=== PATIENT | female | born 1945 | race Caucasian/White ===

== ENCOUNTER 2018-11-21 21:27 | Emergency (ER) | payer MEDICARE ==
[2018-11-22] MEDS ORDERED: NS 0.9% 1000 ML** 1,000 ML IV ONE (00:09)
[2018-11-22] MEDS ORDERED: Ketorolac INJ* 30 MG/ML 1 ML VIAL IV PUSH ONE ×2 (00:09→02:59)
[2018-11-22] MEDS ORDERED: Ondansetron INJ* 2 MG/ML VIAL IV ONE (00:10)
[2018-11-22 00:33] LABS: ABS Basophils 0 10^3/ul (0-0.2); ABS Eosinophils 0.1 10^3/ul (0-0.6); ABS Lymphocytes 1.8 10^3/ul (1.0-4.8); ABS Monocytes 0.9 10^3/ul (0-0.8); ABS Neutrophils 8.5 10^3/ul (1.5-7.7); ABS Nucleated RBC 0 10^3/ul; Eosinophil % 0.8 %; Hematocrit 39 % (33-41); Hemoglobin 12.8 g/dL (12.0-16.0); Lymphocyte % 15.6 %; Mean Corpuscular HGB Conc 33 g/dL (31-36); Mean Corpuscular Hemoglobin 29 pg (27-31); Mean Corpuscular Volume 89 fL (80-97); Mean Platelet Volume 8.9 fL (7.4-10.4); Nucleated Red Blood Cells % 0; Platelet Count 246 10^3/uL (150-450); Red Blood Count 4.35 10^6 /uL (3.70-4.87); Red Cell Distribution Width 13 % (10.5-15); White Blood Count 11.3 10^3/uL (3.5-10.8)
[2018-11-22 00:44] LABS: Activated Partial Thrombo Time 31.1 seconds (26.0-36.3); INR 0.82 (0.77-1.02)
[2018-11-22 00:46] LABS: Albumin 4.4 g/dL (3.2-5.2); Albumin/Globulin Ratio 1.5 (1-3); BUN/Creatinine Ratio 30.8 (8-20); C Reactive Protein 30.29 mg/L (<8.01); Calcium 9.4 mg/dL (8.6-10.3); EGFR African American 108.7 (>60); EGFR Non-African American 89.9 (>60); Magnesium 1.3 mg/dL (1.9-2.7); Potassium 4.1 mmol/L (3.5-5.0); Total Bilirubin 0.5 mg/dL (0.2-1.0); Total Protein 7.4 g/dL (6.4-8.9)
--- NOTE | 2018-11-22 01:03 | ED ---
Complex/Multi-Sys Presentation - HPI Summary HPI Summary: A 73 y/o female presents to [facility] with a chief complaint of right sided groin pain. She reports that she first felt pain one night ago, felt fine the next day , and then her pain started up again tonight and has been worsening since she came in to the ED. She reports that some of her pain radiates to her back. At triage she rated her pain as an 8/10 in severity. She denies dysuria, hematuria or N/V. She denies any past abdominal surgeries. She reports a left breast removal. - History Of Current Complaint Chief Complaint: EDGeneral Time Seen by Provider: 11/22/18 00:03 Hx Obtained From: Patient Onset/Duration: Sudden Onset, Lasting Days, Still Present Timing: Intermittent, Lasting:, Hours Severity Currently: Severe Severity Initially: Severe Location: Pain At: - right groin pain Character: Unable To Describe Aggravating Factor(s): nothing Alleviating Factor(s): nothing Associated Signs And Symptoms: Positive: Back Pain. Negative: Nausea, Vomiting , Dysuria, Fever - Allergies/Home Medications Allergies/Adverse Reactions: Allergies Allergy/AdvReac Type Severity Reaction Status Date / Time No Known Allergies Allergy Verified 05/10/15 14:08 PMH/Surg Hx/FS Hx/Imm Hx Musculoskeletal History: Denies: Hx Osteoporosis Sensory History: Denies: Hx Deafness - Cancer History Hx Chemotherapy: Yes - BREAST Hx Radiation Therapy: No - Surgical History Surgery Procedure, Year, and Place: left breast removal Infectious Disease History: No Infectious Disease History: Denies: Traveled Outside the [place] in Last 30 Days - Family History Known Family History: Negative: Blood Disorder - Social History Alcohol Use: None Substance Use Type: Reports: None Smoking Status (MU): Never Smoked Tobacco Review of Systems Negative: Fever Negative: Vomiting, Nausea Negative: dysuria, hematuria Positive: Myalgia - back pain, Other - positive: right groin pain All Other Systems Reviewed And Are Negative: Yes Physical Exam - Summary Physical Exam Summary: VITAL SIGNS: Reviewed. GENERAL: Patient is a well-developed and nourished FEMALE who is lying comfortable in the stretcher. Patient is not in any acute respiratory distress. HEAD AND FACE: No signs of trauma. No ecchymosis, hematomas or skull depressions. No sinus tenderness. EYES: PERRLA, EOMI x 2, No injected conjunctiva, no nystagmus. EARS: Hearing grossly intact. Ear canals and tympanic membranes are within normal limits. MOUTH: Oropharynx within normal limits. NECK: Supple, trachea is midline, no adenopathy, no JVD, no carotid bruit, no c- spine tenderness, neck with full ROM. CHEST: Symmetric, no tenderness at palpation LUNGS: Clear to auscultation bilaterally. No wheezing or crackles. CVS: Regular rate and rhythm, S1 and S2 present, no murmurs or gallops appreciated. ABDOMEN: Right CVA tenderness, right pelvic tenderness.. No signs of distention. No rebound no guarding, and no masses palpated. Bowel sounds are normal. EXTREMITIES: Right CVA tenderness, right pelvic tenderness. FROM in all major joints, no edema, no cyanosis or clubbing. NEURO: Alert and oriented x 3. No acute neurological deficits. Speech is normal and follows commands. SKIN: Dry and warm Triage Information Reviewed: Yes Vital Signs On Initial Exam: Initial Vitals Temp Pulse Resp BP Pulse Ox 98.6 F 78 18 189/82 96 11/21/18 21:30 11/21/18 21:30 11/21/18 21:30 11/21/18 21:30 11/21/18 21:30 Vital Signs Reviewed: Yes Diagnostics - Vital Signs Vital Signs Temp Pulse Resp BP Pulse Ox 11/22/18 00:17 73 177/89 93 11/22/18 00:16 73 94 11/21/18 21:30 98.6 F 78 18 189/82 96 - Laboratory Lab Results: Lab Results 11/22/18 11/22/18 11/22/18 Range/Units 00:22 00:22 00:22 WBC 11.3 H (3.5-10.8) 10^3/uL RBC 4.35 (3.70-4.87) 10^6 /uL Hgb 12.8 (12.0-16.0) g/dL Hct 39 (33-41) % MCV 89 (80-97) fL MCH 29 (27-31) pg MCHC 33 (31-36) g/dL RDW 13 (10.5-15) % Plt Count 246 (150-450) 10^3/uL MPV 8.9 (7.4-10.4) fL Neut % (Auto) 75.7 % Lymph % (Auto) 15.6 % Pettis % (Auto) 7.7 % Eos % (Auto) 0.8 % Baso % (Auto) 0.2 % Absolute Neuts (auto) 8.5 H (1.5-7.7) 10^3/ul Absolute Lymphs (auto) 1.8 (1.0-4.8) 10^3/ul Absolute Monos (auto) 0.9 H (0-0.8) 10^3/ul Absolute Eos (auto) 0.1 (0-0.6) 10^3/ul Absolute Basos (auto) 0 (0-0.2) 10^3/ul Absolute Nucleated RBC 0 10^3/ul Nucleated RBC % 0 INR (Anticoag Therapy) 0.82 (0.77-1.02) APTT 31.1 (26.0-36.3) seconds Sodium 134 L (135-145) mmol/L Potassium 4.1 (3.5-5.0) mmol/L Chloride 101 (101-111) mmol/L Carbon Dioxide 22 (22-32) mmol/L Anion Gap 11 (2-11) mmol/L BUN 20 (6-24) mg/dL Creatinine 0.65 (0.51-0.95) mg/dL Est GFR ( Amer) 108.7 (>60) Est GFR (Non-Af Amer) 89.9 (>60) BUN/Creatinine Ratio 30.8 H (8-20) Glucose 257 H (70-100) mg/dL Calcium 9.4 (8.6-10.3) mg/dL Magnesium 1.3 L (1.9-2.7) mg/dL Total Bilirubin 0.50 (0.2-1.0) mg/dL AST 23 (13-39) U/L ALT 18 (7-52) U/L Alkaline Phosphatase 55 (34-104) U/L C-Reactive Protein 30.29 H (<8.01) mg/L Total Protein 7.4 (6.4-8.9) g/dL Albumin 4.4 (3.2-5.2) g/dL Globulin 3.0 (2-4) g/dL Albumin/Globulin Ratio 1.5 (1-3) Lipase 27 (11.0-82.0) U/L Result Diagrams: 11/22/18 00:22 11/22/18 00:22 Lab Statement: Any lab studies that have been ordered have been reviewed, and results considered in the medical decision making process. - CT abdomen/pelvis CT Interpretation Completed By: Radiologist Summary of CT Findings: 1. Moderately obstructing 6 mm calculus distal third right ureter. 2. Distal colonic diverticulosis. 3. Suspected old or atypical uterine IUD. 4. Bilateral inguinal hernias. No strangulation. ED physician has reviewed this imaging report. Complex Multi-Symp Course/Dx Course Of Treatment: A 73 y/o female presents to [facility] with a chief complaint of right sided groin pain. She reports that she first felt pain one night ago, felt fine the next day, and then her pain started up again tonight and has been worsening since she came in to the ED. She reports that some of her pain radiates to her back. At triage she rated her pain as an 8/10 in severity. She denies dysuria, hematuria or N/V. She denies any past abdominal surgeries. She reports a left breast removal. The physical exam revealed right CVA and right pelvic tednerness. In the ED course the patient was given Toradol IV and Zofran IV. CT abdomen/pelvis impression: 1. Moderately obstructing 6 mm calculus distal third right ureter. 2. Distal colonic diverticulosis. 3. Suspected old or atypical uterine IUD. 4. Bilateral inguinal hernias. No strangulation. Bloodwork, chemistries and urines obtained. Urine glucose 3+, urine bacteria 1+ , Ur Squamous Epith Cells present, Urine WBC 3+, Ur Leukocyte Esterase 1+ and trace urine ketones. Pt did not have any fever at home and there was no fever in the ED. She will be discharged on Levaquin follow up with her urologist today. she is agreeable with this plan. - Diagnoses Provider Diagnoses: Right ureteral stone, Renal colic, Cystitis Discharge - Sign-Out/Discharge Documenting (check all that apply): Patient Departure - DC Patient Received Moderate/Deep Sedation with Procedure: No - Discharge Plan Condition: Stable Disposition: HOME Prescriptions: Levofloxacin TAB* [Levaquin TAB*] 500 mg PO DAILY #7 tab oxyCODONE/Acetamin 5/325 MG* [Percocet 5/325 TAB*] 1 tab PO Q6H PRN #14 tab MDD 4 PRN Reason: Pain Tamsulosin CAP* [Flomax CAP*] 0.4 mg PO BEDTIME #7 cap Patient Education Materials: Renal Colic (ED) Referrals: Laith German MD [Medical Doctor] - (Today) Yael Hurt MD [Primary Care Provider] - (1-2) Additional Instructions: Follow up with your urologist today. RETURN TO THE EMERGENCY DEPARTMENT FOR CHANGING OR WORSENING SYMPTOMS. FOLLOW UP WITH PCP IN 1-2 DAYS. - Billing Disposition and Condition Condition: STABLE Disposition: Home - Attestation Statements Document Initiated by Scribe: Yes Documenting Scribe: Willian Armstrong Provider For Whom Scribe is Documenting (Include Credential): Chasidy Donahue MD Scribe Attestation: Willian Dickens scribed for Chasidy Donahue MD on 11/22/18 at 0617. Scribe Documentation Reviewed: Yes Provider Attestation: The documentation as recorded by the Willian cuadra accurately reflects the service I personally performed and the decisions made by Yong haskins MD Status of Scribe Document: Viewed
[2018-11-22 01:18] LABS: Urine Appearance Cloudy; Urine Bacteria 1+ (Absent); Urine Bilirubin Negative (Negative); Urine Blood Negative (Negative); Urine Color Yellow; Urine Glucose 3+(>=500 mg/dL) (Negative); Urine Ketones Trace (Negative); Urine Nitrite Negative (Negative); Urine Protein Negative (Negative); Urine Red Blood Cell Trace(0-2/hpf) (Absent); Urine Specific Gravity 1.008 (1.010-1.030); Urine Squamous Epithelial Cell Present (Absent); Urine Urobilinogen Negative (Negative); Urine White Blood Cell 3+(>20/hpf) (Absent)
[2018-11-22] MEDS ORDERED: Morphine 4 MG/ML VIAL (1 ml) 4 MG/ML VIAL IV ONE (03:00)
[2018-11-22] MEDS ORDERED: Levofloxacin TAB* 500 MG PO ONE (03:01)
[2018-11-22] MEDS ORDERED: Tamsulosin CAP* 0.4 MG PO ONE (03:02)
[2018-11-22 03:54] VITALS: BP 145/100
--- NOTE | 2018-11-22 09:36 | PN ---
Progress Note - Progress Note Date of Service: 11/22/18 Note: Pt. rx levaquin for cystitis. [facility] pharmacy called today for medication potential medication rxn. Risk of prolonged QT with citalopram and levaquin. No recent ECG. Will switch to bactrim DS.
== END 2018-11-22 03:52 | disposition home or self-care (01) ==
LOC: ED 21:27
DX: N23 Unspecified renal colic (principal); N30.90 Cystitis, unspecified without hematuria; M54.9 Dorsalgia, unspecified; N20.1 Calculus of ureter; Z85.3 Personal history of malignant neoplasm of breast
CPT/HCPCS: 36415; 74176; 80053; 81003; 81015; 83690; 83735; 85025; 85610; 85730; 86140; 87077; 87086; 87186; 96374; 96375; 96376; 99284; J1885; J2270; J2405

== ENCOUNTER 2018-11-24 20:21 | Inpatient (IN) | payer MEDICARE ==
[2018-11-24] MEDS ORDERED: NS 0.9% 1000 ML** 1,000 ML IV ONE ×3 (20:49→22:29)
[2018-11-24] MEDS ORDERED: Ketorolac INJ* 30 MG/ML 1 ML VIAL IV PUSH ONE (20:49)
[2018-11-24] MEDS ORDERED: Ondansetron INJ* 2 MG/ML VIAL IV ONE (20:49)
--- NOTE | 2018-11-24 20:49 | ED ---
GI/ HPI - HPI Summary HPI Summary: Patient is a 73 y/o female who presents to the ED c/o nausea. Her symptoms began 4 days ago. Patient was here on 11/21/18 for right lower abdominal pain radiating to her right flank, and was diagnosed with a right kidney stone. A CT A/P revealed a moderately obstructing 6 mm calculus distal third right ureter. Patient was initially prescribed Levaquin but this was then changed to Bactrim. In the past 3 days her abdominal pain has subsided, but she continues to have intermittent right flank pain. Patients pain is currently rated a 5/10 in severity. Patient c/o nausea, worsening tremors, and mild SOB. She denies any fever, dysuria, hematuria, vomiting, abdominal pain, cough, or congestion. She is diabetic and her BG was in the 150s today. As per son, she has not been drinking much water therefore has not been urinating much. Patient denies any prior hx of kidney stones. - History of Current Complaint Chief Complaint: EDNauseaVomitDiarrh Time Seen by Provider: 11/24/18 20:48 Stated Complaint: NAUSEA PER EMS Hx Obtained From: Patient Onset/Duration: Started Days Ago - 4, Worse Since Timing: Constant, Intermittent - flank pain Severity: Severe Current Severity: Moderate Pain Intensity: 5 Location of Pain: Flank - right Associated Signs and Symptoms: Positive: Nausea, Flank Pain - right. Negative: Vomiting, Fever, Hematuria, Dysuria, Cough Aggravating Factor(s): Nothing Alleviating Factor(s): Nothing - Allergy/Home Medications Allergies/Adverse Reactions: Allergies Allergy/AdvReac Type Severity Reaction Status Date / Time No Known Allergies Allergy Verified 11/24/18 20:46 PMH/Surg Hx/FS Hx/Imm Hx Endocrine/Hematology History: Reports: Hx Diabetes Cardiovascular History: Denies: Hx Coronary Artery Disease History: Reports: Hx Kidney Stones Musculoskeletal History: Denies: Hx Osteoporosis Sensory History: Denies: Hx Deafness Psychiatric History: Reports: Hx Depression - Cancer History Hx Chemotherapy: Yes - BREAST Hx Radiation Therapy: No - Surgical History Surgery Procedure, Year, and Place: left breast removal Infectious Disease History: No Infectious Disease History: Denies: Traveled Outside the [place] in Last 30 Days - Family History Known Family History: Negative: Blood Disorder - Social History Alcohol Use: None Hx Substance Use: No Substance Use Type: Reports: None Hx Tobacco Use: No Smoking Status (MU): Never Smoked Tobacco Review of Systems Negative: Fever Negative: Other - congestion Positive: Shortness Of Breath. Negative: Cough Positive: Nausea. Negative: Abdominal Pain, Vomiting Positive: flank pain - right. Negative: dysuria, hematuria Neurological: Other - tremors All Other Systems Reviewed And Are Negative: Yes Physical Exam - Summary Physical Exam Summary: Appearance: Well appearing, mild pain distress, rigoring Skin: warm, dry, reflects adequate perfusion Head/face: normal Eyes: EOMI, MONICA ENT: mucous membranes moist Neck: supple, non-tender Respiratory: CTA, breath sounds present Cardiovascular: RRR, pulses symmetrical Abdomen: non-tender, soft, no CVA tenderness Bowel Sounds: present Musculoskeletal: normal, strength/ROM intact Neuro: normal, sensory motor intact, A&Ox3 Triage Information Reviewed: Yes Vital Signs On Initial Exam: Initial Vitals Temp Pulse Resp BP Pulse Ox 98.1 F 96 22 131/88 95 11/24/18 20:27 11/24/18 20:27 11/24/18 20:27 11/24/18 20:27 11/24/18 20:27 Vital Signs Reviewed: Yes Diagnostics - Vital Signs Vital Signs Temp Pulse Resp BP Pulse Ox 11/24/18 20:27 98.1 F 96 22 131/88 95 - Laboratory Result Diagrams: 11/24/18 20:57 11/24/18 20:57 Lab Statement: Any lab studies that have been ordered have been reviewed, and results considered in the medical decision making process. - Radiology CXR Radiology Interpretation Completed By: ED Physician Summary of Radiographic Findings: No acute pulmonary disease. Pending official radiology report. Abdomen XR Radiology Interpretation Completed By: ED Physician Summary of Radiographic Findings: Kidney stone not visualized. Pending official radiology report. - CT CT A/P CT Interpretation Completed By: ED Physician - large R hydro with 6mm obstructing stone at UVJ. PRELIM read - EKG 21:35 Cardiac Rate: NL - 88 bpm EKG Rhythm: Sinus Rhythm ST Segment: Non-Specific Summary of EKG Findings: Nl axis, LVH criteria Re-Evaluation - Re-Evaluation First Eval Change: Unchanged - pt states last urine about 5pm GIGU Course/Dx - Course Course Of Treatment: Nurse's notes reviewed. Patient with rigors and mild right -sided flank pain. She was treated with Toradol prior to receiving her laboratories which show acute ATN likely related to obstructing ureteral lithiasis plus her medications. IV fluids 2 L, IV Rocephin given. X-ray failed to show the obstructing stone. Discussed with the urologist who wanted a new CT. My preliminary read shows large right-sided hydronephrosis with the obstructing stone at the UVJ. All nephrotoxic drugs will be stopped, she will continue to be hydrated and he plans to take her to the OR either tonight or first thing in the morning. The hospitalist has been contacted and will admit. - Diagnoses Differential Diagnoses - Female: Renal Colic, Urinary Tract Infection, Ureteral Calculi, Other - sepsis Provider Diagnoses: Obstructive uropathy, Ureterolithiasis, Acute renal tubular necrosis - Physician Notifications Discussed Care Of Patient With: Urban Schmitz - d/w Dr Yary Campo at 10pm who will admit Time Discussed With Above Provider: 21:40 Instructed by Provider To: Other - Dr. Schmitz does not want to transfer the pt, he will come to the ED for a consult. Avoid nephrotoxic drugs and get new CT A/ P. Admit the patient to the hospitalist. Dr. Schmitz will take the patient to the OR if the stone is still in place. - Critical Care Time Critical Care Time: 30-74 min - Critical care time is exclusive of separately billable procedures Discharge - Sign-Out/Discharge Documenting (check all that apply): Patient Departure - Admit, Sign-Out Patient Signing out patient TO: Chasidy Elhoma Patient Received Moderate/Deep Sedation with Procedure: No - Discharge Plan Condition: Guarded Disposition: ADMITTED TO [facility] Referrals: Yael Hurt MD [Primary Care Provider] - - Billing Disposition and Condition Condition: GUARDED Disposition: Admitted to [facility] - Attestation Statements Document Initiated by Scribe: Yes Documenting Scribe: Zaira Salvador Provider For Whom Celeste is Documenting (Include Credential): Wyatt Menendez MD Scribe Attestation: Zaira Dickens scribed for Wyatt Menendez MD on 11/24/18 at 2207. Scribe Documentation Reviewed: Yes Provider Attestation: The documentation as recorded by the Zaira cuadra accurately reflects the service I personally performed and the decisions made by me, Wyatt Menendez MD Status of Scribe Document: Viewed
[2018-11-24] MEDS ORDERED: cefTRIAXone(*) 2 GM in NS 0.9% 100 ML* 100 ML IVPB ONE (20:50)
[2018-11-24 21:22] LABS: Albumin 3.6 g/dL (3.2-5.2); Albumin/Globulin Ratio 1.1 (1-3); BUN/Creatinine Ratio 18.4 (8-20); C Reactive Protein 248.05 mg/L (<8.01); Calcium 8.4 mg/dL (8.6-10.3); EGFR African American 9.7 (>60); Globulin 3.3 g/dL (2-4); Potassium 4.7 mmol/L (3.5-5.0); Total Bilirubin 0.4 mg/dL (0.2-1.0); Total Protein 6.9 g/dL (6.4-8.9)
[2018-11-24 21:25] LABS: Hematocrit 38 % (33-41); Hemoglobin 12.5 g/dL (12.0-16.0); Mean Corpuscular HGB Conc 33 g/dL (31-36); Mean Corpuscular Hemoglobin 29 pg (27-31); Mean Corpuscular Volume 88 fL (80-97); Mean Platelet Volume 10.3 fL (7.4-10.4); Platelet Count 105 10^3/uL (150-450); Red Blood Count 4.26 10^6 /uL (3.70-4.87); Red Cell Distribution Width 13 % (10.5-15)
[2018-11-24 22:19] LABS: Immature Granulocytes 7 % (0-9); Lymphocytes % 20 %; Monocytes % 2 %; Neutrophil % 69 %; Nucleated Red Blood Cells/100 1 (0-0); Promyelocytes % 1 %
[2018-11-24 22:33] LABS: Polychromasia 1+
[2018-11-24 22:34] LABS: Burr Cells 2+
[2018-11-24 22:38] LABS: Urine Appearance Turbid; Urine Bacteria Absent (Absent); Urine Bilirubin Negative (Negative); Urine Blood Negative (Negative); Urine Color Yellow; Urine Glucose Negative (Negative); Urine Ketones Negative (Negative); Urine Nitrite Negative (Negative); Urine Protein Negative (Negative); Urine Red Blood Cell 1+(3-5/hpf) (Absent); Urine Specific Gravity 1.014 (1.010-1.030); Urine Squamous Epithelial Cell Present (Absent); Urine Urobilinogen Negative (Negative); Urine White Blood Cell 2+(11-20/hpf) (Absent)
--- NOTE | 2018-11-24 22:39 | ED ---
Progress - Progress Note Progress Note: Patient is a 73 y/o female who presents to the ED c/o nausea. Patient was signed out from Dr. Wyatt Menendez to Dr. Chasidy Donahue during a shift change, pending a CT and admission. Re-Evaluation - Re-Evaluation First Eval Change: Unchanged - pt states last urine about 5pm Course/Dx - Course Course Of Treatment: Nurse's notes reviewed. Patient with rigors and mild right -sided flank pain. She was treated with Toradol prior to receiving her laboratories which show acute ATN likely related to obstructing ureteral lithiasis plus her medications. IV fluids 2 L, IV Rocephin given. X-ray failed to show the obstructing stone. Discussed with the urologist who wanted a new CT. My preliminary read shows large right-sided hydronephrosis with the obstructing stone at the UVJ. All nephrotoxic drugs will be stopped, she will continue to be hydrated and he plans to take her to the OR either tonight or first thing in the morning. The hospitalist has been contacted and will admit. - Diagnoses Provider Diagnoses: Obstructive uropathy, Ureterolithiasis, Acute renal tubular necrosis - Provider Notifications Time Discussed With Above Provider: 21:40 Instructed by Provider To: Other - Dr. Schmitz does not want to transfer the pt, he will come to the ED for a consult. Avoid nephrotoxic drugs and get new CT A/ P. Admit the patient to the hospitalist. Dr. Schmitz will take the patient to the OR if the stone is still in place. - Critical Care Time Critical Care Time: 30-74 min - Critical care time is exclusive of separately billable procedures Discharge - Sign-Out/Discharge Documenting (check all that apply): Patient Departure - Admit, Receiving Sign- Out Receiving patient FROM: Wyatt Menendez - Pending a CT and admission All imaging exams completed and their final reports reviewed: Yes Patient Received Moderate/Deep Sedation with Procedure: No - Discharge Plan Condition: Guarded Disposition: ADMITTED TO [facility] - Billing Disposition and Condition Condition: GUARDED Disposition: Admitted to [facility] - Attestation Statements Document Initiated by Scribe: Yes Documenting Scribe: Guille Hirsch Provider For Whom Scribe is Documenting (Include Credential): Chasidy Donahue MD Scribe Attestation: Guille Dickens scribed for Chasidy Donahue MD on 11/25/18 at 0559. Scribe Documentation Reviewed: Yes Provider Attestation: The documentation as recorded by the Guille cuadra accurately reflects the service I personally performed and the decisions made by me, Chasidy Donahue MD Status of Scribe Document: Viewed
[2018-11-24 22:40] LABS: ABS Eosinophils 0.06 10^3/ul (0-0.6); ABS Neutrophils 4.6 10^3/ul (1.5-7.7)
[2018-11-24] MEDS ORDERED: Docusate CAP* 100 MG PO PRN (22:50)
[2018-11-24] MEDS ORDERED: Senna TAB PO PRN (22:50)
[2018-11-24] MEDS ORDERED: Acetaminophen TAB* 325 MG PO PRN (22:50)
[2018-11-24] MEDS ORDERED: Al Hydrox/Mg Hydrox/Simet LIQ* 30 ML UDC PO PRN (22:50)
[2018-11-24] MEDS ORDERED: Dextrose 50% Syringe 50 ML* 25 GM/50 ML SYRINGE IV PUSH PRN (22:56)
[2018-11-24] MEDS ORDERED: NS 0.9% 1000 ML** 1,000 ML IV SCH (23:00)
--- NOTE | 2018-11-25 02:07 | HP ---
HISTORY AND PHYSICAL: DATE OF ADMISSION: 11/24/18 TIME OF EVALUATION: 2300. PRIMARY CARE PHYSICIAN: Yael Hurt MD CHIEF COMPLAINT: Nausea, weakness, and decreased appetite. HISTORY OF PRESENT ILLNESS: This is a 73-year-old female with past medical history of diabetes and hypertension who presented initially to the emergency room in the early hours of 11/22/18 for abdominal pain and urinary symptoms, found to have a 6 mm right calculus stone and UTI. She was discharged to home on Levaquin and was recommended she follow up with the urologist that day. The patient was feeling so weak and nauseated. She could not get out of bed and was unable to get to the urologist. Her son who is living with her has been trying to encourage fluids, but she has had not much of an appetite . No vomiting. No abdominal pain. She continues to have this right-sided groin pain. She feels somewhat short of breath. No fevers, no chest pain. She has been lightheaded and dizzy and she has a baseline tremor that seems to be have gotten worse and decreased in urine output. No dysuria, no frequency. In the emergency room, the patient had labs and imaging. She was found to have an obstructive uropathy with renal failure. Dr. Schmitz was contacted. He recommended admission and he is going to take her to the OR in the morning. Otherwise, remaining review of systems negative. In the emergency room, the patient has ceftriaxone 2 g, Toradol 30 mg, Zofran 4 mg, and 2 L of fluid. PAST MEDICAL HISTORY: 1. History of diabetes; not on insulin. 2. Hyperlipidemia. 3. Hypertension. 4. History of bilateral inguinal hernia. 5. History of breast cancer, status post left mastectomy with chemotherapy. 6. Essential tremor. 7. Depression. MEDICATIONS: 1. Amlodipine 10 mg p.o. daily. 2. Metoprolol tartrate 100 mg p.o. b.i.d. 3. Citalopram 40 mg daily. 4. Glipizide 10 mg p.o. b.i.d. 5. Metformin 500 mg 5 times a day. 6. Lisinopril 20 mg daily. 7. Pravastatin 20 mg daily. 8. Aspirin 81 mg daily. 9. [place]-3 1000 mg b.i.d. ALLERGIES: No known drug allergies. FAMILY HISTORY: Reviewed and noncontributory. SOCIAL HISTORY: The patient lives at home with her son. Her daughter lives down stairs. She is independent of her ADLs. 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 No history of tobacco, alcohol or illicit drug use. Her healthcare proxy, Alicia, her son and daughter. Code status full code. REVIEW OF SYSTEMS: A 14-point review of systems as mentioned in the HPI; otherwise negative. PHYSICAL EXAMINATION GENERAL: In no acute distress. She has a resting tremor noted. Her son is at the bedside. VITAL SIGNS: Temp 98, pulse rate 82, respiratory rate 17, oxygen saturation 93 % on room air, blood pressure is 90/48. HEENT: Head: Normocephalic. Pupils equal and reactive, anicteric. Oropharynx : Mucous membranes are vicky. Lips are dry. NECK: Supple. RESPIRATORY: Diminished breath sounds. No wheezing, rhonchi, or rales. CARDIAC: Tachycardia with a systolic murmur, most prominent at the left sternal base. ABDOMEN: Soft and nondistended. She has some tenderness in the right groin region. EXTREMITIES: No clubbing, cyanosis, or edema. +1 DPs. NEUROLOGIC: Alert and oriented x3. No gross focal neurologic deficits. As noted, she does have a resting tremor. DIAGNOSTIC STUDIES/LAB DATA: White count 6, hemoglobin 12.5, hematocrit 38, platelets 105, blast cells 1, 6% bands, 1 nucleated RBC. Sodium 129, potassium 4.7, chloride 89, bicarb 15, anion gap of 25, BUN 97, creatinine 5.26, glucose 171, lactic acid 7.3, alk phos 204, CRP is 248. Urine shows squamous cells, 1+ rbc's, 2+ whites, 1+ leukocytes. Radiographic Data: Minimally advanced, moderately obstructing 6 mm calculus, now located in the right UVJ. Cholelithiasis, distal colonic diverticulosis. Chest x- ray is unremarkable. Abdominal film, nonspecific bowel gas pattern. EKG shows normal sinus rhythm with LVH. Nonspecific ST-wave flattening. ASSESSMENT: This is a 73-year-old female who was recently diagnosed with nephrolithiasis and urinary tract infection, on Levaquin, who returns 2 days later with worsening nausea and tremors, found to have a moderately obstructing stone with renal failure. 1. Moderately obstructing 6 mm calculus. Assessment: Dr. Schmitz is aware and is going to take her to the OR in the morning. We will continue her on aggressive IV fluids, pain control, and we will continue her on ceftriaxone. 2. Acute renal failure with anion gap metabolic acidosis with lactic acidosis, suspect this is multifactorial from dehydration from her obstructive uropathy. The patient is also on metformin, which could be contributed to her lactic acidosis and lisinopril. Plan: We will aggressively fluid resuscitate her, hold her oral agents of lisinopril, glipizide, metformin, and hold her Levaquin as well and renally dose her meds and repeat her labs in the morning. If she still has renal impairment despite relief of her obstruction, consider Nephrology evaluation. 3. Thrombocytopenia with 1 blast cell. Assessment: Her thrombocytopenia is new from 2 days ago, could be in the setting of her acute illness; however, was concerning of the blast cell that is seen on the CBC. I did order a peripheral smear and recommend Hematology evaluation if blast persists. 4. Chronic medical problems. Hypotension, the patient's blood pressures are soft, holding her metoprolol, amlodipine, and lisinopril for now. 5. Depression. Continue her citalopram. 6. Diabetes. We will place her on lispro sliding scale. Hold the glipizide and the metformin. We will also hold her aspirin. 7. Fluids, electrolytes, nutrition: NPO after midnight with aggressive IV fluid. 8. DVT prophylaxis. The patient scores high risk, place her on heparin subcu t.i.d. 9. Code status, full code. PATIENT TIME: Greater than 60 minutes was spent doing the history and physical , more than half of the time was spent in direct patient contact and critical care time. [id number]/[facility] #: [id number] LISA
[2018-11-25 04:00] LABS: BUN/Creatinine Ratio 19.8 (8-20); Calcium 6.8 mg/dL (8.6-10.3); EGFR African American 10.7 (>60); EGFR Non-African American 8.9 (>60)
[2018-11-25 04:04] LABS: Hematocrit 30 % (33-41); Hemoglobin 9.9 g/dL (12.0-16.0); Mean Corpuscular HGB Conc 34 g/dL (31-36); Mean Corpuscular Hemoglobin 30 pg (27-31); Mean Corpuscular Volume 88 fL (80-97); Mean Platelet Volume 10.8 fL (7.4-10.4); Platelet Count 90 10^3/uL (150-450); Red Blood Count 3.38 10^6 /uL (3.70-4.87); Red Cell Distribution Width 13 % (10.5-15); White Blood Count 27.3 10^3/uL (3.5-10.8)
[2018-11-25 04:09] LABS: Potassium 5.2 mmol/L (3.5-5.0)
[2018-11-25 04:34] LABS: Burr Cells 1+; Immature Granulocytes 5 % (0-9); Lymphocytes % 2 %; Monocytes % 1 %; Neutrophil % 92 %; Polychromasia 1+
[2018-11-25 04:36] LABS: ABS Neutrophils 26.48 10^3/ul (1.5-7.7)
[2018-11-25] MEDS: Heparin VIAL(*) 5000 UNITS/ML VIAL (FIVE THOUSAND) SUBCUT SCH ×3 (06:08→21:02)
[2018-11-25] MEDS ORDERED: Cefepime 1 GM in Dextrose(*) 1 GM/50 ML BAG IV SCH (06:45)
[2018-11-25] MEDS ORDERED: Iohexol 180 (CONTRAST) 10 ML SDV IV ONE (07:05)
[2018-11-25] MEDS ORDERED: Lidocaine 2% PF * 5 ML VIAL ONE (07:18)
[2018-11-25] MEDS ORDERED: Phenylephrine 10 MG/ML VIAL* 1 ML VIAL ONE (07:18)
[2018-11-25] MEDS ORDERED: Propofol* 10 MG/ML 20 ML BTL ONE (07:18)
[2018-11-25] MEDS ORDERED: fentaNYL* 50 MCG/ML 2 ML VIAL (100 MCG VIAL) ONE (07:18)
[2018-11-25] MEDS ORDERED: Dexamethasone IV* 4 MG/ML 1 ML (4 MG) ONE (07:18)
[2018-11-25] MEDS ORDERED: Midazolam* 1 MG/ML 5 ML VIAL (5 MG) ONE (07:18)
[2018-11-25] MEDS ORDERED: Ondansetron INJ* 2 MG/ML VIAL ONE (07:18)
[2018-11-25] MEDS: Cefepime 1 GM in Dextrose(*) 1 GM/50 ML BAG IV SCH (07:29)
[2018-11-25] MEDS ORDERED: Phenylephrine 1% NASAL* 15 ML BOT ONE (08:52)
[2018-11-25] MEDS ORDERED: fentaNYL* 50 MCG/ML 2 ML VIAL (100 MCG VIAL) IV PRN (09:07)
[2018-11-25] MEDS ORDERED: Naloxone* 0.4 MG/ML 1 ML VIAL IV PRN (09:07)
[2018-11-25] MEDS ORDERED: DiMENhydriNATE IV* 50 MG/ML VIAL IV PUSH PRN (09:07)
[2018-11-25] MEDS: Lactated Ringers 1000 ML Bag* 1,000 ML IV SCH ×3 (10:15→21:05)
[2018-11-25] MEDS: Insulin LISPRO* 1 UNITS UNIT SUBCUT SCH ×3 (10:16→19:00)
--- NOTE | 2018-11-25 12:14 | OP ---
CC: Dr. Yael Hurt; Dr. Yany Campo; Urban Schmitz MD OPERATIVE SUMMARY: DATE OF OPERATION: 11/25/18 DATE OF : 49 SURGEON: Urban Schmitz MD. ANESTHESIOLOGIST: Dr. Pugh. ANESTHESIA: General. PRE-OP DIAGNOSES: 1. Right hydronephrosis and hydroureter. 2. Obstructing calculus, right distal ureter. 3. Renal failure. POST-OP DIAGNOSES: 1. Right hydronephrosis and hydroureter. 2. Obstructing calculus, right distal ureter. 3. Renal failure. OPERATIVE PROCEDURE: Cystoscopy, right retrograde and right stent insertion. COMPLICATIONS: None. INDICATIONS: Delfina Flower is a 73-year-old diabetic who had been evaluated in the emergency room e david during the week and noted to have a 6-mm calculus in the right distal ureter. She was dischar ged and came back to the emergency room last night and was noted to have an increased creatinine and persistent right hydronephrosis and hydroureter. She is now being brought in for urgent right stent insertion, to be followed at some point in the future by right ureteroscopy and laser lithotripsy. DESCRIPTION OF PROCEDURE: After induction of general anesthesia, the patient was placed in dorsal li thotomy position. Sequential compression devices were in place and functioning. Initial evaluation revealed some mild chronic inflammatory changes in the bladder. There was some efflux of urine noted from the left orifice and no efflux noted from the right orifice suggesting a complete obstruction. A guidewire was introduced into the right ureter and after some initial manipulation, was advanced p roximally. Once this was done, thick purulent looking urine drained from the right ureter. Limited retrograde pyelogram revealed severely dilated tortuous right proximal ureter and right hydronephrosi s. Using a hydrophilic wire, the ureter was straightened and once this was done, an 8-Brazilian stent w as introduced and positioned under fluoroscopy with good proximal and distal positioning obtained. A Le catheter was placed for bladder drainage. The patient tolerated the procedure satisfactorily and was transferred back to the recovery area in stable condition. The plan is to bring her back in a couple of weeks for outpatient surgery for right ureteroscopy, las er lithotripsy, and stent replacement. [id number]/[facility] #: [id number]
[2018-11-25 15:24] LABS: BUN/Creatinine Ratio 20.6 (8-20); EGFR African American 11.7 (>60); EGFR Non-African American 9.7 (>60); Potassium 4.9 mmol/L (3.5-5.0)
[2018-11-25 15:26] LABS: Calcium 6.3 mg/dL (8.6-10.3)
[2018-11-25] MEDS ORDERED: Calcium Gluconate INJ* 2 GM in NS 0.9% 100 ML* 100 ML IV ONE (15:45)
--- NOTE | 2018-11-25 15:51 | PN ---
Subjective Date of Service: 11/25/18 Interval History: Seen after OR with stent placement by Dr. Schmitz Feels improved since admission Tremor at baseline but was worse yesterday and improving now minimal pain Objective Active Medications: Acetaminophen (Tylenol Tab*) 650 mg PO Q4H PRN PRN Reason: FEVER/PAIN Al Hydrox/Mg Hydrox/Simethicone (Maalox Plus*) 30 ml PO Q6H PRN PRN Reason: INDIGESTION Citalopram Hydrobromide (Celexa Tab*) 40 mg PO DAILY [facility] Dextrose (D50w Syringe 50 Ml*) 12.5 gm IV PUSH .FOR FS < 60 - SS PRN PRN Reason: FS < 60 Docusate Sodium (Colace Cap*) 100 mg PO BID PRN PRN Reason: CONSTIPATION Heparin Sodium (Porcine) (Heparin Vial(*)) 5,000 units SUBCUT Q8HR [facility] Last Admin: 11/25/18 13:56 Dose: 5,000 units Cefepime HCl (Maxipime 1 Gm In Dextrose Duplex (*)) 1 gm in 50 mls @ 100 mls/ hr IV Q24H [facility] Last Admin: 11/25/18 07:29 Dose: 100 mls/hr Lactated Ringer's (Lactated Ringers 1000 Ml Bag*) 1,000 mls @ 250 mls/hr IV PER RATE [facility] Last Admin: 11/25/18 15:01 Dose: 250 mls/hr Calcium Gluconate 2 gm/ Sodium (Chloride) 120 mls @ 60 mls/hr IV ONCE ONE Stop: 11/25/18 17:44 Insulin Human Lispro (Humalog*) 0 units SUBCUT AC [facility]; Protocol Last Admin: 11/25/18 13:57 Dose: 1 units Morphine Sulfate (Morphine 4 Mg/Ml Vial (1 Ml)) 1 mg IV Q4HR PRN PRN Reason: PAIN Senna (Senokot Tab*) 1 tab PO BID PRN PRN Reason: CONSTIPATION Sodium Bicarbonate (Sodium Bicarbonate (Antacid)*) 650 mg PO Q6HR [facility] Vital Signs - 8 hr 11/25/18 11/25/18 11/25/18 09:02 09:04 09:06 Temperature 97.7 F Pulse Rate 78 81 184 Respiratory 18 17 Rate Blood Pressure 136/76 143/72 (mmHg) O2 Sat by Pulse 94 95 90 Oximetry 11/25/18 11/25/18 11/25/18 09:13 09:15 09:21 Temperature 97.5 F 97.7 F 97.7 F Pulse Rate 79 77 77 Respiratory 17 16 20 Rate Blood Pressure 127/65 117/69 127/66 (mmHg) O2 Sat by Pulse 92 92 93 Oximetry 11/25/18 11/25/18 11/25/18 09:30 09:31 09:39 Temperature 97.7 F 97.7 F 97.7 F Pulse Rate 77 73 76 Respiratory 20 18 23 Rate Blood Pressure 127/66 96/63 121/68 (mmHg) O2 Sat by Pulse 93 93 94 Oximetry 11/25/18 11/25/18 11/25/18 09:46 10:00 10:01 Temperature 97.7 F 97.9 F 97.9 F Pulse Rate 74 70 71 Respiratory 18 17 16 Rate Blood Pressure 114/70 109/61 (mmHg) O2 Sat by Pulse 93 92 92 Oximetry 11/25/18 11/25/18 11/25/18 10:16 10:31 10:46 Temperature 97.9 F 98.1 F 98.1 F Pulse Rate 73 74 73 Respiratory 20 23 20 Rate Blood Pressure 118/66 122/69 124/70 (mmHg) O2 Sat by Pulse 93 93 93 Oximetry 11/25/18 11/25/18 11:00 11:01 Temperature 98.2 F Pulse Rate 76 Respiratory 25 25 Rate Blood Pressure 118/76 (mmHg) O2 Sat by Pulse 93 Oximetry Oxygen Devices in Use Now: Nasal Cannula Appearance: tremulous, NAD Eyes: No Scleral Icterus, PERRLA Ears/Nose/Mouth/Throat: NL Teeth, Lips, Gums, Clear Oropharnyx Neck: NL Appearance and Movements; NL JVP, Trachea Midline Respiratory: Symmetrical Chest Expansion and Respiratory Effort, Clear to Auscultation Cardiovascular: NL Sounds; No Murmurs; No JVD, RRR Abdominal: NL Sounds; No Tenderness; No Distention Lymphatic: No Cervical Adenopathy Skin: No Rash or Ulcers Neurological: Alert and Oriented x 3, - - arms and jaw with high frequency tremor Result Diagrams: 11/25/18 03:30 11/25/18 14:45 Microbiology and Other Data: Microbiology 11/25/18 00:45 Nasal Screen MRSA (PCR) - Final Nasal Mrsa Not Detected Assess/Plan/Problems-Billing Assessment: 73 yo F h/o DM2, HTN, essential tremor p/w AKF in setting of obstructing renal stone - Patient Problems (1) Acute kidney failure Comment: in setting of obstruction s/p stenting 11/[address] Schmitz c/w LR 200 cc maintain anderson monitor for post obstructive diuresis start sodium bicarb 2/2 metabolic acidosis (2) Leukocytosis Comment: Cefepime LR as above 1 blast cell seen; reviewed by path and Dr. Fournier. Favored reactive in setting of infection repeat CBC tomorrow (3) Diabetes Comment: lispro SS
[2018-11-25] MEDS ORDERED: NS 0.9% 100 ML* 100 ML ONE (16:13)
[2018-11-25] MEDS: Citalopram TAB* 40 MG PO SCH (16:18)
[2018-11-25] MEDS: Sodium Bicarbonate (ANTACID)* 650 MG TAB PO SCH (18:21)
[2018-11-25] MEDS ORDERED: cefTRIAXone(*) 1 GM in NS 0.9% 50 ML* 50 ML IVPB SCH (21:00)
[2018-11-26] MEDS: Lactated Ringers 1000 ML Bag* 1,000 ML IV SCH ×2 (00:56→05:12)
[2018-11-26] MEDS: Sodium Bicarbonate (ANTACID)* 650 MG TAB PO SCH ×4 (00:58→16:21)
[2018-11-26] MEDS: Morphine 4 MG/ML VIAL (1 ml) 4 MG/ML VIAL IV PRN ×2 (05:12→22:43)
[2018-11-26 05:41] LABS: Hematocrit 31 % (33-41); Hemoglobin 10.2 g/dL (12.0-16.0); Mean Corpuscular HGB Conc 33 g/dL (31-36); Mean Corpuscular Hemoglobin 29 pg (27-31); Mean Corpuscular Volume 88 fL (80-97); Mean Platelet Volume 10.1 fL (7.4-10.4); Platelet Count 55 10^3/uL (150-450); Red Cell Distribution Width 13 % (10.5-15); White Blood Count 15.8 10^3/uL (3.5-10.8)
[2018-11-26 05:52] LABS: BUN/Creatinine Ratio 21.9 (8-20); EGFR African American 12.9 (>60); EGFR Non-African American 10.7 (>60); Magnesium 1.5 mg/dL (1.9-2.7); Potassium 4.6 mmol/L (3.5-5.0)
[2018-11-26 05:55] LABS: Immature Granulocytes 1 % (0-9); Lymphocytes % 3 %; Monocytes % 2 %; Neutrophil % 94 %
[2018-11-26 05:57] LABS: ABS Neutrophils 15.01 10^3/ul (1.5-7.7)
[2018-11-26] MEDS: Heparin VIAL(*) 5000 UNITS/ML VIAL (FIVE THOUSAND) SUBCUT SCH ×2 (06:28→12:51)
[2018-11-26] MEDS: Cefepime 1 GM in Dextrose(*) 1 GM/50 ML BAG IV SCH (07:54)
[2018-11-26] MEDS ORDERED: Magnesium Sulfate 2 GM IV* 2 GM/50 ML BAG ONE (09:43)
[2018-11-26] MEDS: Citalopram TAB* 40 MG PO SCH (09:51)
[2018-11-26] MEDS ORDERED: Magnesium Sulfate 2 GM IV* 2 GM/50 ML BAG IVPB ONE (10:00)
[2018-11-26] MEDS ORDERED: Calcium Gluconate INJ* 2 GM in NS 0.9% 100 ML* 100 ML IV ONE (10:00)
[2018-11-26] MEDS: Insulin LISPRO* 1 UNITS UNIT SUBCUT SCH ×3 (11:33→17:06)
[2018-11-26] MEDS: Ondansetron INJ* 2 MG/ML VIAL IV PRN ×2 (12:51→22:43)
[2018-11-26] MEDS ORDERED: Pantoprazole IV* 40 MG IV ONE (13:08)
[2018-11-26 13:31] LABS: Hematocrit 30 % (33-41); Hemoglobin 10.1 g/dL (12.0-16.0)
[2018-11-26] MEDS ORDERED: Ondansetron INJ* 2 MG/ML VIAL IV ONE (13:46)
[2018-11-26] MEDS: Pantoprazole* 80 mg IN NS 80 MG/250 ML BAG IVPB SCH (13:53)
--- NOTE | 2018-11-26 14:38 | PN ---
Subjective Date of Service: 11/26/18 Interval History: Seen this AM and again after transfer out of the ICU This AM mild nauseous but hungry OOB in chair Objective Active Medications: Acetaminophen (Tylenol Tab*) 650 mg PO Q4H PRN PRN Reason: FEVER/PAIN Al Hydrox/Mg Hydrox/Simethicone (Maalox Plus*) 30 ml PO Q6H PRN PRN Reason: INDIGESTION Citalopram Hydrobromide (Celexa Tab*) 40 mg PO DAILY [facility] Last Admin: 11/26/18 09:51 Dose: 40 mg Dextrose (D50w Syringe 50 Ml*) 12.5 gm IV PUSH .FOR FS < 60 - SS PRN PRN Reason: FS < 60 Docusate Sodium (Colace Cap*) 100 mg PO BID PRN PRN Reason: CONSTIPATION Ceftriaxone Sodium 1 gm/ (Sodium Chloride) 50 mls @ 200 mls/hr IVPB Q24H [facility] Pantoprazole Sodium (Protonix Iv Bag*) 80 mg in 250 mls @ 25 mls/hr IVPB Q10H [facility] Last Admin: 11/26/18 13:53 Dose: 25 mls/hr Insulin Human Lispro (Humalog*) 0 units SUBCUT AC [facility]; Protocol Last Admin: 11/26/18 12:41 Dose: 6 units Morphine Sulfate (Morphine 4 Mg/Ml Vial (1 Ml)) 1 mg IV Q4HR PRN PRN Reason: PAIN Last Admin: 11/26/18 05:12 Dose: 1 mg Ondansetron HCl (Zofran Inj*) 4 mg IV Q4H PRN PRN Reason: NAUSEA Last Admin: 11/26/18 12:51 Dose: 4 mg Senna (Senokot Tab*) 1 tab PO BID PRN PRN Reason: CONSTIPATION Sodium Bicarbonate (Sodium Bicarbonate (Antacid)*) 1,300 mg PO Q6HR [facility] Last Admin: 11/26/18 12:41 Dose: Not Given Vital Signs - 8 hr 11/26/18 11/26/18 11/26/18 07:00 07:01 08:00 Temperature 97.7 F 97.7 F 97.5 F Pulse Rate 74 72 81 Respiratory 15 14 20 Rate Blood Pressure 134/74 (mmHg) O2 Sat by Pulse 95 95 99 Oximetry 11/26/18 11/26/18 11/26/18 08:01 09:00 09:01 Temperature 97.5 F 97.5 F Pulse Rate 79 77 Respiratory 18 18 18 Rate Blood Pressure 149/85 139/81 (mmHg) O2 Sat by Pulse 97 96 Oximetry 11/26/18 11/26/18 11/26/18 10:00 10:01 11:50 Temperature 98.2 F Pulse Rate 83 78 Respiratory 19 19 18 Rate Blood Pressure 136/79 (mmHg) O2 Sat by Pulse 96 96 Oximetry 11/26/18 11/26/18 13:53 14:04 Temperature 97.5 F Pulse Rate 75 76 Respiratory 14 16 Rate Blood Pressure 106/87 118/78 (mmHg) O2 Sat by Pulse 93 96 Oximetry Oxygen Devices in Use Now: None Result Diagrams: 11/26/18 13:26 11/26/18 05:20 Microbiology and Other Data: Microbiology 11/25/18 00:45 Nasal Screen MRSA (PCR) - Final Nasal Mrsa Not Detected Assess/Plan/Problems-Billing Assessment: 73 yo F h/o DM2, HTN, essential tremor p/w AKF in setting of obstructing renal stone - Patient Problems (1) GI bleed Comment: Maroon emesis after transfer to floor No abdominal pain PPI bolus then gtt serial H/H Check Plts now Stopped Heparin GI consulted Thrombocytopenia and uremic plts contributing (2) Thrombocytopenia Comment: Significant infection on admission not meeting sepsis criteria suspect infection contributing to thrombocytopenia Plts declined from 11/22 to 11/24 without heparin monitor may need plts if bleeding continues (3) Acute kidney failure Comment: in setting of obstruction s/p stenting 11/[address] Schmitz Mild improvement today 11/26 stopped LR 200 cc 11/25 continue to monitor for post obstructive diuresis start sodium bicarb 2/2 metabolic acidosis - increased on 11/25 (4) Leukocytosis Comment: Cefepime narrowed to CTX Urine cx from ER presentation 11/22 pansensitive E.coli Pus drained from behind stone with stent 1 blast cell seen; reviewed by path and Dr. Fournier. Favored reactive in setting of infection repeat CBC tomorrow (5) Diabetes Comment: lispro SS
[2018-11-26 14:41] LABS: Mean Platelet Volume 11.1 fL (7.4-10.4); Platelet Count 62 10^3/uL (150-450)
[2018-11-26 20:27] LABS: Hematocrit 31 % (33-41); Hemoglobin 10.2 g/dL (12.0-16.0)
[2018-11-26 20:45] LABS: Activated Partial Thrombo Time 29.1 seconds (26.0-36.3); INR 0.95 (0.77-1.02)
[2018-11-26 20:46] LABS: Platelet Count 57 10^3/ul (150-450)
[2018-11-26 21:44] LABS: Schistocytes PRESENT
[2018-11-26] MEDS ORDERED: Metoclopramide IV* 5 MG/ML 2 ML VIAL IV PRN (23:10)
[2018-11-27 00:23] LABS: Hematocrit 28 % (33-41); Hemoglobin 9.4 g/dL (12.0-16.0)
[2018-11-27] MEDS: Pantoprazole* 80 mg IN NS 80 MG/250 ML BAG IVPB SCH ×5 (00:28→23:53)
[2018-11-27] MEDS: Sodium Bicarbonate (ANTACID)* 650 MG TAB PO SCH ×5 (00:44→23:46)
[2018-11-27] MEDS: NS 0.9% 1000 ML** 1,000 ML IV SCH ×2 (05:47→21:57)
[2018-11-27 07:00] LABS: Hematocrit 23 % (33-41); Hemoglobin 7.7 g/dL (12.0-16.0); Mean Corpuscular HGB Conc 33 g/dL (31-36); Mean Corpuscular Hemoglobin 29 pg (27-31); Mean Corpuscular Volume 86 fL (80-97); Mean Platelet Volume 11.1 fL (7.4-10.4); Platelet Count 54 10^3/uL (150-450); Red Blood Count 2.67 10^6 /uL (3.70-4.87); Red Cell Distribution Width 13 % (10.5-15); White Blood Count 14.1 10^3/uL (3.5-10.8)
[2018-11-27] MEDS ORDERED: cefTRIAXone(*) 1 GM in NS 0.9% 50 ML* 50 ML IVPB SCH (07:00)
[2018-11-27] MEDS: Citalopram TAB* 40 MG PO SCH (07:06)
[2018-11-27 07:13] LABS: BUN/Creatinine Ratio 27.9 (8-20); Calcium 7.2 mg/dL (8.6-10.3); EGFR African American 15.2 (>60); EGFR Non-African American 12.5 (>60); Phosphorus 4.6 mg/dL (2.5-5.0)
[2018-11-27 07:43] LABS: Immature Granulocytes 2 % (0-9); Lymphocytes % 9 %; Monocytes % 5 %; Neutrophil % 84 %
[2018-11-27 07:45] LABS: ABS Neutrophils 12.1 10^3/ul (1.5-7.7)
[2018-11-27] MEDS: Ondansetron INJ* 2 MG/ML VIAL IV PRN (08:11)
[2018-11-27] MEDS: Insulin LISPRO* 1 UNITS UNIT SUBCUT SCH ×5 (09:14→22:02)
[2018-11-27 10:36] LABS: Hematocrit 23 % (33-41); Hemoglobin 7.8 g/dL (12.0-16.0); Mean Corpuscular HGB Conc 33 g/dL (31-36); Mean Corpuscular Hemoglobin 29 pg (27-31); Mean Corpuscular Volume 87 fL (80-97); Mean Platelet Volume 11.4 fL (7.4-10.4); Platelet Count 53 10^3/uL (150-450); Red Blood Count 2.67 10^6 /uL (3.70-4.87); Red Cell Distribution Width 13 % (10.5-15); White Blood Count 13.8 10^3/uL (3.5-10.8)
[2018-11-27] MEDS ORDERED: fentaNYL* 50 MCG/ML 2 ML VIAL (100 MCG VIAL) ONE (11:27)
[2018-11-27] MEDS ORDERED: Midazolam* 1 MG/ML 10 ML VIAL (10 MG) ONE (11:27)
[2018-11-27] MEDS ORDERED: Ondansetron INJ* 2 MG/ML VIAL ONE (11:30)
[2018-11-27] MEDS ORDERED: Desmopressin Acetate* 4 MCG/ML 10 ML VIAL IVPB ONE (11:53)
[2018-11-27 12:15] LABS: Hematocrit 16 % (33-41); Hemoglobin 5.3 g/dL (12.0-16.0); Mean Corpuscular HGB Conc 33 g/dL (31-36); Mean Corpuscular Hemoglobin 30 pg (27-31); Mean Corpuscular Volume 89 fL (80-97); Mean Platelet Volume 11.7 fL (7.4-10.4); Platelet Count 52 10^3/uL (150-450); Red Cell Distribution Width 14 % (10.5-15); White Blood Count 12.7 10^3/uL (3.5-10.8)
[2018-11-27] MEDS ORDERED: NS 0.9% 1000 ML** 1,000 ML IV ONE (12:18)
[2018-11-27] MEDS ORDERED: NS 0.9% IVPB ONE (12:30)
[2018-11-27] MEDS ORDERED: DESMOPRESSIN ACETATE IVPB ONE (12:30)
--- NOTE | 2018-11-27 16:23 | PN ---
Subjective Date of Service: 11/27/18 Interval History: NG placed overnight for emesis. Continued to be bloody (dark red) This AM while transferring to [facility] became hypotension (SBP 70s) and hypoxic (80s ) I responded and called CAT team in hallway Pt received fluid boluses, oxygen, and blood order placed before transfer to ICU Additional access established by ICU team Received ddavp 0.3mcg/kg Received 2 units PRBC and is receiving plts now after EGD EGD notable for numberous (up 14) ulcers in stomach and duodenum but NO active bleeding. Full report to follow Objective Active Medications: Acetaminophen (Tylenol Tab*) 650 mg PO Q4H PRN PRN Reason: FEVER/PAIN Al Hydrox/Mg Hydrox/Simethicone (Maalox Plus*) 30 ml PO Q6H PRN PRN Reason: INDIGESTION Citalopram Hydrobromide (Celexa Tab*) 40 mg PO DAILY [facility] Last Admin: 11/27/18 07:06 Dose: Not Given Dextrose (D50w Syringe 50 Ml*) 12.5 gm IV PUSH .FOR FS < 60 - SS PRN PRN Reason: FS < 60 Docusate Sodium (Colace Cap*) 100 mg PO BID PRN PRN Reason: CONSTIPATION Ceftriaxone Sodium 1 gm/ (Sodium Chloride) 50 mls @ 200 mls/hr IVPB Q24H [facility] Last Admin: 11/27/18 06:43 Dose: 200 mls/hr Pantoprazole Sodium (Protonix Iv Bag*) 80 mg in 250 mls @ 25 mls/hr IVPB Q10H [facility] Last Admin: 11/27/18 13:59 Dose: 25 mls/hr Sodium Chloride (Ns 0.9% 1000 Ml) 1,000 mls @ 125 mls/hr IV PER RATE [facility] Last Admin: 11/27/18 05:47 Dose: 125 mls/hr Insulin Human Lispro (Humalog*) 0 units SUBCUT AC [facility]; Protocol Last Admin: 11/27/18 13:55 Dose: 4 units Metoclopramide HCl (Reglan Iv*) 5 mg IV Q6H PRN PRN Reason: NAUSEA/VOMITING Morphine Sulfate (Morphine 4 Mg/Ml Vial (1 Ml)) 1 mg IV Q4HR PRN PRN Reason: PAIN Last Admin: 11/26/18 22:43 Dose: 1 mg Ondansetron HCl (Zofran Inj*) 4 mg IV Q4H PRN PRN Reason: NAUSEA Last Admin: 11/27/18 08:11 Dose: 4 mg Senna (Senokot Tab*) 1 tab PO BID PRN PRN Reason: CONSTIPATION Sodium Bicarbonate (Sodium Bicarbonate (Antacid)*) 1,300 mg PO Q6HR [facility] Last Admin: 11/27/18 13:14 Dose: Not Given Vital Signs - 8 hr 11/27/18 11/27/18 11/27/18 08:19 08:41 11:26 Temperature 98.0 F Pulse Rate 92 96 Respiratory 26 Rate Blood Pressure 136/54 81/48 (mmHg) O2 Sat by Pulse 97 Oximetry 11/27/18 11/27/18 11/27/18 11:33 11:38 11:47 Temperature Pulse Rate 131 83 131 Respiratory 13 Rate Blood Pressure 79/51 83/49 (mmHg) O2 Sat by Pulse 80 100 Oximetry 11/27/18 11/27/18 11/27/18 11:48 12:00 12:01 Temperature Pulse Rate 172 117 116 Respiratory 25 16 25 Rate Blood Pressure 82/55 40/36 (mmHg) O2 Sat by Pulse 89 97 100 Oximetry 11/27/18 11/27/18 11/27/18 12:15 12:23 12:31 Temperature 97.2 F Pulse Rate 125 126 116 Respiratory 20 13 16 Rate Blood Pressure 77/58 82/55 72/51 (mmHg) O2 Sat by Pulse 100 100 99 Oximetry 11/27/18 11/27/18 11/27/18 12:46 12:58 13:00 Temperature Pulse Rate 120 121 121 Respiratory 15 19 19 Rate Blood Pressure 91/56 73/54 90/60 (mmHg) O2 Sat by Pulse 100 95 100 Oximetry 11/27/18 11/27/18 11/27/18 13:02 13:06 13:12 Temperature Pulse Rate 132 115 Respiratory 22 16 17 Rate Blood Pressure 97/53 (mmHg) O2 Sat by Pulse 89 92 Oximetry 11/27/18 11/27/18 11/27/18 13:15 13:23 13:27 Temperature Pulse Rate 119 109 123 Respiratory 17 9 12 Rate Blood Pressure 88/53 80/51 110/61 (mmHg) O2 Sat by Pulse 100 100 100 Oximetry 03/11/27/18 11/27/18 13:32 13:35 13:46 Temperature Pulse Rate 131 117 122 Respiratory 23 21 17 Rate Blood Pressure 194/183 88/57 79/58 (mmHg) O2 Sat by Pulse 99 100 100 Oximetry 11/27/18 11/27/18 11/27/18 14:00 14:01 14:09 Temperature Pulse Rate 96 123 118 Respiratory 16 20 16 Rate Blood Pressure 89/73 (mmHg) O2 Sat by Pulse 100 100 99 Oximetry 11/27/18 11/27/18 11/27/18 14:16 14:31 14:38 Temperature Pulse Rate 108 123 108 Respiratory 19 18 19 Rate Blood Pressure 109/56 64/45 101/62 (mmHg) O2 Sat by Pulse 100 89 100 Oximetry 11/27/18 11/27/18 11/27/18 14:46 15:00 15:01 Temperature Pulse Rate 117 112 102 Respiratory 18 19 20 Rate Blood Pressure 91/67 87/62 (mmHg) O2 Sat by Pulse 99 100 100 Oximetry 11/27/18 11/27/18 11/27/18 15:11 15:15 15:18 Temperature Pulse Rate 114 114 96 Respiratory 19 16 19 Rate Blood Pressure 119/44 119/67 134/75 (mmHg) O2 Sat by Pulse 96 100 100 Oximetry 11/27/18 11/27/18 11/27/18 15:20 15:25 15:30 Temperature Pulse Rate 105 110 105 Respiratory 14 23 21 Rate Blood Pressure 104/69 115/81 94/80 (mmHg) O2 Sat by Pulse 99 92 99 Oximetry 11/27/18 11/27/18 15:33 15:37 Temperature Pulse Rate 99 Respiratory 19 20 Rate Blood Pressure 86/51 (mmHg) O2 Sat by Pulse 96 Oximetry Oxygen Devices in Use Now: OxyMask Appearance: ill appearing Eyes: No Scleral Icterus, PERRLA Ears/Nose/Mouth/Throat: NL Teeth, Lips, Gums, - - dry MM Neck: NL Appearance and Movements; NL JVP, Trachea Midline Respiratory: Symmetrical Chest Expansion and Respiratory Effort, Clear to Auscultation Cardiovascular: - - tachy Abdominal: - - TTP Extremities: No Edema, No Clubbing, Cyanosis, - - right arm slightly edematous Skin: No Rash or Ulcers Neurological: Alert and Oriented x 3 Result Diagrams: 11/27/18 11:54 11/27/18 06:42 Microbiology and Other Data: Microbiology 11/25/18 00:45 Nasal Screen MRSA (PCR) - Final Nasal Mrsa Not Detected Assess/Plan/Problems-Billing Assessment: 73 yo F h/o DM2, HTN, essential tremor p/w AKF in setting of obstructing renal stone with stay c/b upper GIB with numerous ulcers - Patient Problems (1) GI bleed Comment: GI hemorrhage c/w PPI gtt If rebleeds will need transfer for IR intervention. Discussed with GI. No bleeding currently and trabsfer not likely indicated currently. Would redose ddAVP if any signs of additional bleeding and give platelets. Repeat CBC 1999 after blood and platelets Suspect thrombocytopenia and uremia unmasked underlying ulcers. Ulcers in setting of NSAID? vs gastrinoma vs H. Pylori (2) Thrombocytopenia Comment: Sepsis on admission contributing suspect infection contributing to thrombocytopenia although will change CTX to other abx to avoid marrow suppresion Plts declined from 11/22 to 11/24 without heparin monitor may need plts if bleeding continues (3) Acute kidney failure Comment: in setting of obstruction s/p stenting 11/[address] Schmitz Degree of failure out of proportion to obstruction. Suspect ATN in setting of sepsis contributed. Starting to improve however hypotension 11/27 may set back stopped LR 200 cc 11/25 c/w sodium bicarb PO (4) Leukocytosis Comment: Cefepime narrowed to CTX now levaquin given thrombocytopenia Urine cx from ER presentation 11/22 pansensitive E.coli Pus drained from behind stone with stent 1 blast cell seen; reviewed by path and Dr. Fournier. Favored reactive in setting of infection repeat CBC tomorrow (5) Diabetes Comment: lispro SS (6) DVT prophylaxis Comment: SCDs
[2018-11-27 16:53] LABS: Hematocrit 24 % (33-41); Hemoglobin 7.9 g/dL (12.0-16.0)
[2018-11-27 17:01] LABS: Mean Platelet Volume 10.3 fL (7.4-10.4); Platelet Count 73 10^3/uL (150-450)
--- NOTE | 2018-11-27 18:03 | CONS ---
CC: Bg Marie MD; Dr. Schmitz; Yael Hurt MD CONSULTATION REPORT: DATE OF CONSULT: 11/27/18. PATIENT'S HOSPITALIST: Bg Marie MD. PATIENT'S UROLOGIST: Dr. Schmitz. REASON FOR CONSULT: Hematemesis. REQUESTING PROVIDER: Bg Marie MD. HISTORY OF PRESENT ILLNESS: This is a very pleasant 73-year-old female with a past medical history of diabetes, hypertension, who initially presented to the emergency room on 11/22/18 for abdominal pain and difficulty urinating. She was found to have an obstructing renal calculi with associated renal failure and uremia. She was taken to the OR for management and appeared to be recovering quite well. On 11/26/18, in the afternoon, she developed hematemesis. She did have some nausea and emesis prior to this with some associated retching for about the last week or two. She denies any Motrin, ibuprofen, or Aleve but takes daily baby aspirin. No history of peptic ulcer disease. Denies any history of alcohol abuse or liver dysfunction. She had an EGD and colonoscopy with Diallo Peoples in 2014 that revealed antral erosions and a few colon polyps with associated diverticulosis. On 11/26/18, at my request, a Protonix drip was started, serial H and H's. Keeping 2 units of PRBCs on hold. Was recommended, of note, her platelets at baseline appeared to be 250 to 300; however, when she arrived on the 11/24/18 her platelet count was 105 and it subsequently dropped to 53. Denies weight loss, weight gain. No abdominal pain. Does have associated nausea and emesis. Remainder of the 14- point review of systems is grossly negative. PAST MEDICAL HISTORY: Diabetes mellitus; hyperlipidemia; hypertension; inguinal hernia; history of breast cancer, status post left mastectomy and chemotherapy; essential tremor; depression. HOME MEDICATIONS: Include: 1. Amlodipine. 2. Metoprolol. 3. Citalopram. 4. Glipizide. 5. Metformin. 6. Lisinopril. 7. Pravastatin. 8. Aspirin. 9. Port Tobacco 3. ALLERGIES: No known drug allergies. FAMILY HISTORY: No family history of GI cancer or inflammatory bowel disease. SOCIAL HISTORY: Lives at home with her son. Daughter lives close by as well. 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 No history of tobacco, alcohol, or illicit drug use. REVIEW OF SYSTEMS: Remainder of the 14-point review of systems is grossly negative. PHYSICAL EXAM: Vital Signs: Blood pressure 136/54, pulse 92, respiratory rate 22, oxygen saturation 96% on room air. T-max 98.4. In general, alert, slight pallor. HEENT: Atraumatic normocephalic. Pupils equal, round, and reactive to light. Extraocular movements are intact. Conjunctivae pale. Sclerae anicteric. NG tube in place with scant blood. Cardiovascular: Tachycardic, S1 , S2. Respiratory: Clear to auscultation bilaterally. Abdomen: Soft, obese, nontender, nondistended. Bowel sounds positive. Extremities: No clubbing, cyanosis, or edema. DIAGNOSTIC STUDIES/LAB DATA: Hemoglobin on 11/26/18 was 10.1, repeat later in the day was 10.2, this morning significant drop to 7.8 at 0830. Platelet count has been hovering in the 50s, an acute drop from a few weeks ago, where she was 250. Fibrinogen is 421, INR is 0.95, D-dimer is 1050. BUN is 100, creatinine 3.5. She had a CT of the abdomen and pelvis on 11/24/18 that revealed cholelithiasis , diverticulosis, and the prior mentioned calculus in the ureter. ASSESSMENT AND PLAN: 1. Acute blood loss anemia. The patient has new onset platelet dysfunction, likely secondary to uremia from her obstructive uropathy. She does take baby aspirin at home, but no other NSAIDs. No history of alcohol abuse. Protonix drip has been initiated and serial H and H's. Keep 2 units of PRBCs on hold at all times, consider super pack platelet transfusion. In addition, we will plan on endoscopy to evaluate for source. Given the nausea and retching prior, Sandra- Arredondo is high on the list along with ulceration/erosion unmasked from uremic platelet dysfunction. 2. Obstructive uropathy, status post surgical correction per urology. 3. Acute kidney injury secondary to obstructive uropathy. Slowly improving. 4. Thrombocytopenia. Acute, relatively severe. Consider super packet platelet transfusion +/- DDAVP. [id number]/[facility] #: [id number] [facility]
--- NOTE | 2018-11-27 20:30 | CONS ---
CRITICAL CARE CONSULTATION REPORT: DATE OF CONSULT: 11/27/18 CONSULTATION REQUESTED BY: Dr. Bg Marie. REASON FOR CONSULT: Acute GI bleed. HISTORY OF PRESENT ILLNESS: The patient is a 73-year-old female with history of diabetes; hypertension; history of breast cancer, status post left mastectomy and chemotherapy; depression. The patient recently was evaluated in the ED for abdominal pain, found to have 6 mm right ureteral calculus and UTI. The patient was initiated on Levaquin and was recommended to follow up with urologist. The patient had poor oral intake secondary to pain and nausea, continued to have right- sided groin pain associated with some shortness of breath. She felt lightheaded and dizzy and her baseline tremor worsened and had poor urine output, at which time she returned to the emergency room. She was found to have obstructive uropathy with acute renal failure. Urology was consulted at that time and was taken to the OR following morning and was admitted to the hospital for urosepsis, acute renal failure secondary to obstructive calculus. The patient at that time was given 2 L of IV fluids, was given ceftriaxone, Toradol for pain and Zofran for nausea. She was initially admitted to ICU given acute renal failure. The patient was seen by Urology and underwent cystoscopy with stent insertion. She was found to have significant right hydronephrosis and hydroureter with obstructive calculus in the right distal ureter. She was transferred back to the ICU for acute GI bleed. She had episode of maroon-colored emesis this morning while on the floor. She also became hypotensive. Hemoglobin dropped acutely. The patient subsequently was brought into the ICU. She has received another 2 units of IV fluids upon arrival in the ICU. She also was noted to have thrombocytopenia and was given desmopressin. Platelets and packed RBCs were also ordered. The patient was seen by GI. She is awaiting EGD. Given hypotension and need to stabilize the patient, she is currently being monitored in the ICU. The patient denies abdominal pain or nausea at this time. Has NG tube placed with evidence of bright red blood. She was started on oxygen given the hypotension. Her blood pressure improved slightly with 2 L of IV fluids to 73/54. Hemoglobin was noted to be around 5.3. PAST MEDICAL HISTORY: 1. Diabetes, diet-controlled. 2. Hyperlipidemia. 3. Hypertension. 4. Bilateral inguinal hernia. 5. Breast cancer, status post mastectomy on the left side and chemotherapy. 6. Essential tremor. 7. Depression. MEDICATIONS AT HOME: 1. Amlodipine 10 mg daily. 2. Metoprolol 100 mg b.i.d. 3. Citalopram 40 mg daily. 4. Glipizide 10 mg p.o. b.i.d. 5. Metformin 500 mg b.i.d. 6. Lisinopril 20 mg daily. 7. Pravastatin 20 mg daily. 8. Aspirin 81 mg daily. 9. Aurora-3 1000 mg b.i.d. ALLERGIES: No known drug allergies. FAMILY HISTORY: Reviewed and noncontributory to current presentation. SOCIAL HISTORY: Lives at home with her son. No alcohol, tobacco, or drug abuse. REVIEW OF SYSTEMS: All 14 systems were reviewed. The patient denied URI symptoms. The patient denies recent illness. The patient denied recent travel or sick contacts. The patient has been taking aspirin at home. Has not been taking chronic pain medications. The patient denied chest pain, palpitations. The patient has had urinary complaints as above in the HPI. She had groin pain on the right side. Denied fevers or chills. PHYSICAL EXAM: The patient is in bed, in no apparent distress. Vital Signs: Temperature 97.2, pulse between 110 to 120, respiratory rate 15, O2 sat 100% on 2 L O2, blood pressure 91/56. HEENT: Pupils equal, reactive to light. Mucous membranes moist. Lungs: Good air entry bilaterally. No wheeze. Cardiovascular: S1, S2 present, irregular. No murmurs. Abdomen: Soft, nontender, nondistended. Bowel sounds present. Extremities: Normal range of motion. No edema. Neuro: Alert, awake, oriented x3. No focal deficits. Has essential tremor. Skin: No rash. DIAGNOSTIC STUDIES/LAB DATA: WBC count 12.7, hemoglobin 5.3, hematocrit 16, platelet count 52. INR 0.95, PTT 29, fibrinogen 421, D-dimer greater than 1050. Sodium 136, potassium 4, chloride 106, bicarb 18, BUN 100, creatinine 3.58, ionized calcium 1.06. UA positive for wbc's. Abdominal and pelvic CT showed minimally advanced to moderately obstructing 6 mm calculus in the right UV junction with cholelithiasis and distal colonic diverticulosis. Chest x-ray on admission was personally reviewed by me - no acute airspace opacities. IMPRESSION AND RECOMMENDATIONS: 73-year-old female with urosepsis recently and ureteral calculus with obstructive uropathy, hydronephrosis with acute renal failure and gastrointestinal bleed. Acute gastrointestinal bleed - acute upper gastrointestinal bleed secondary to peptic ulcer disease versus Sandra-Arredondo tear. The patient receiving blood transfusions. The patient also with thrombocytopenia secondary to likely uremia. She has received DDAVP. She is also receiving fluids. She will be closely monitored in the ICU. She is to have EGD to find the source once stable. She has good peripheral IV access at this time. She is on PPI drip. She was evaluated by Gastroenterology. We will monitor hemoglobin q.4 hourly. She is mentating well at this time. O2 status is stable. She has 3 more units of blood on standby. Thrombocytopenia most likely is from uremia. Thrombotic thrombocytopenic purpura also in the differential given renal failure and thrombocytopenia; however, she does not have acute mental status changes at this time. Acute renal failure likely from obstructive uropathy. She had hydronephrosis on that side. She was also on metformin and lisinopril. She probably also has a component of prerenal contributing to this from the extreme dehydration. Electrolytes are within normal limits. Calcium is little bit low , but not too bad. Also suspect sepsis resulting in metabolic acidosis with anion gap contributing to the renal failure. Lactate was significantly elevated on admission, normalized subsequently. Pulmonary status is stable currently. She is on oxygen given the acute blood loss anemia. She is tachycardic, which probably is optimal response from her hypotension. She does not have a history of atrial fibrillation, currently in atrial fibrillation with rate not significantly elevated. Cannot be anticoagulate at this time given the acute bleed. She also has multiple PVCs going on. No ST-T wave changes on EKG. We will monitor the patient closely in the ICU. She is stable at this current time. Plan of care was discussed with the patient and her son at bedside. Also discussed the case with Dr. Bg Marie. GI consultation was reviewed. Thank you for allowing me to participate in the care of your patient. [id number]/[facility] #: [id number] LISA
[2018-11-27 21:34] LABS: Hematocrit 23 % (33-41); Hemoglobin 7.6 g/dL (12.0-16.0); Mean Corpuscular HGB Conc 34 g/dL (31-36); Mean Corpuscular Hemoglobin 29 pg (27-31); Mean Corpuscular Volume 87 fL (80-97); Mean Platelet Volume 10.5 fL (7.4-10.4); Platelet Count 84 10^3/uL (150-450); Red Blood Count 2.61 10^6 /uL (3.70-4.87); Red Cell Distribution Width 14 % (10.5-15); White Blood Count 14.1 10^3/uL (3.5-10.8)
[2018-11-27 21:58] LABS: ABS Basophils 0 10^3/ul (0-0.2); ABS Eosinophils 0.4 10^3/ul (0-0.6); ABS Lymphocytes 2.3 10^3/ul (1.0-4.8); ABS Monocytes 1.8 10^3/ul (0-0.8); ABS Neutrophils 9.6 10^3/ul (1.5-7.7); ABS Nucleated RBC 0 10^3/ul; Eosinophil % 2.7 %; Lymphocyte % 16.7 %; Nucleated Red Blood Cells % 0
--- NOTE | 2018-11-27 22:42 | PRO ---
CC: Dr. Hurt; Dr. Bg Marie * EGD REPORT: DATE OF PROCEDURE: 11/27/18 - ROOM #ICU-10 PRIMARY CARE PHYSICIAN: Dr. Hurt. INDICATION FOR PROCEDURE: Hematemesis, anemia, thrombocytopenia. PROCEDURE PERFORMED: Complete esophagogastroduodenoscopy with Endoclip placement. MEDICATIONS GIVEN: Include 3 mg of IV midazolam. DESCRIPTION OF PROCEDURE: After the EGD procedure, including the risks, benefits, and alternatives, with the risks not limited to perforation, surgery, missed lesions, and/or were explained to the patient, written informed consent was obtained, IV medication was given, and a bite block was placed between the teeth. The procedure was done in the intensive care unit. The adult Olympus gastroscope was inserted into the patient's oropharynx, into the tubular esophagus. The tubular esophagus was grossly normal in appearance. A small hiatal hernia was appreciated. There was some residual old blood, but no fresh bleeding within the esophagus. The scope was advanced to the lower esophageal sphincter, into the stomach. Again, old blood was encountered, darker in appearance. No active bleeding. On retroflexion, the aforementioned hiatal hernia was visualized. In the antrum of the stomach, there were numerous ulcers, the largest about 1.1 cm and the smallest around 0.4 cm, probably around 6 to 7 of these. No active bleeding was noted. No distinct visible vessel. The mucosa was quite friable and with her platelet dysfunction , no endoscopic therapy was attempted. We then advanced through the widely patent pylorus into the duodenal bulb. Here, there was a visible vessel with a clot and numerous ulcers within the duodenum as well. An additional 6 to 7 duodenal ulcers were present as well. No active bleeding. I did place an Endoclip over this visible vessel with good effect. Because of the friability of her mucosa and her platelet dysfunction, I deemed that further endoscopic therapy will likely result in more bleeding rather than resolution of her symptomatology. In the distal portion of the duodenum, the views were grossly normal. The scope was then removed from the patient. She tolerated the procedure. She stayed in the ICU in stable condition. IMPRESSION: 1. Complete esophagogastroduodenoscopy with biopsies. 2. Antral ulcerations, numerous. 3. Duodenal ulcerations, numerous, with one visible vessel with clots, status post Endoclip placement with good effect. 4. No fresh blood on exam. Some old blood throughout the stomach. RECOMMENDATIONS: The patient needs to absolutely be continued on IV PPI, at least 72 hours. She is high risk for rebleeding given her uremic platelet dysfunction. Further endoscopic therapy is likely not feasible given the numerous ulcers and the friability of her mucosa. I fear any type of interventional therapy on our part will lead to more bleeding and not resolution of her symptomatology. If the patient does have evidence of active bleeding again, we would recommend consideration for IR embolization. She should have her H and Hs every 6 hours. She should have always have 2 units of PRBCs on hold and she should be closely monitored in the ICU. In addition, if rebleeding does occur, we will consider repeat dose of desmopressin for her uremic platelet dysfunction in addition to another transfusion of super pack of platelets. She will need a repeat EGD in 2 to 3 months' time to fully evaluate this area. In addition, she should have a serum gastrin level at some point, with potentially imaging to rule out a gastrinoma given the numerous ulcers that she does have. In addition a stool H. pylori test antigen should be sent. [id number]/[facility] #: [id number] [facility]
[2018-11-28] MEDS: Pantoprazole* 80 mg IN NS 80 MG/250 ML BAG IVPB SCH ×3 (04:20→19:17)
[2018-11-28 04:45] LABS: Hematocrit 20 % (33-41); Hemoglobin 6.8 g/dL (12.0-16.0); Mean Corpuscular HGB Conc 33 g/dL (31-36); Mean Corpuscular Hemoglobin 29 pg (27-31); Mean Corpuscular Volume 88 fL (80-97); Mean Platelet Volume 10.3 fL (7.4-10.4); Platelet Count 102 10^3/uL (150-450); Red Blood Count 2.32 10^6 /uL (3.70-4.87); Red Cell Distribution Width 15 % (10.5-15); White Blood Count 15.1 10^3/uL (3.5-10.8)
[2018-11-28 04:53] LABS: CO2 Carbon Dioxide 20 mmol/L (22-32); Calcium 6.6 mg/dL (8.6-10.3); Magnesium 1.8 mg/dL (1.9-2.7); Sodium 140 mmol/L (135-145)
[2018-11-28 04:55] LABS: ABS Basophils 0 10^3/ul (0-0.2); ABS Eosinophils 0.5 10^3/ul (0-0.6); ABS Lymphocytes 2.7 10^3/ul (1.0-4.8); ABS Monocytes 1.7 10^3/ul (0-0.8); ABS Neutrophils 10.1 10^3/ul (1.5-7.7); ABS Nucleated RBC 0 10^3/ul; Anion Gap 8 mmol/L (2-11); Chloride 112 mmol/L (101-111)
[2018-11-28 04:59] LABS: BUN/Creatinine Ratio 31.6 (8-20); Blood Urea Nitrogen 91 mg/dL (6-24); EGFR African American 19.5 (>60); EGFR Non-African American 16.1 (>60); Glucose 182 mg/dL (70-100)
[2018-11-28 05:30] LABS: Eosinophil % 3.5 %; Lymphocyte % 17.8 %; Nucleated Red Blood Cells % 0.1
[2018-11-28] MEDS: Sodium Bicarbonate (ANTACID)* 650 MG TAB PO SCH ×3 (06:05→17:31)
[2018-11-28] MEDS: NS 0.9% 1000 ML** 1,000 ML IV SCH ×2 (06:07→21:02)
[2018-11-28] MEDS: Citalopram TAB* 40 MG PO SCH (08:36)
[2018-11-28] MEDS: Insulin LISPRO* 1 UNITS UNIT SUBCUT SCH ×3 (08:54→17:30)
--- NOTE | 2018-11-28 08:59 | PN ---
Subjective Date of Service: 11/28/18 Interval History: Pt feels much better. Denies N/V, has not had a BM in the past 24H, no abd pain. Tolerating sips of water without difficulty Objective Active Medications: Acetaminophen (Tylenol Tab*) 650 mg PO Q4H PRN PRN Reason: FEVER/PAIN Al Hydrox/Mg Hydrox/Simethicone (Maalox Plus*) 30 ml PO Q6H PRN PRN Reason: INDIGESTION Citalopram Hydrobromide (Celexa Tab*) 40 mg PO DAILY [facility] Last Admin: 11/28/18 08:36 Dose: 40 mg Dextrose (D50w Syringe 50 Ml*) 12.5 gm IV PUSH .FOR FS < 60 - SS PRN PRN Reason: FS < 60 Docusate Sodium (Colace Cap*) 100 mg PO BID PRN PRN Reason: CONSTIPATION Pantoprazole Sodium (Protonix Iv Bag*) 80 mg in 250 mls @ 25 mls/hr IVPB Q10H [facility] Last Admin: 11/28/18 08:45 Dose: 25 mls/hr Levofloxacin/Dextrose (Levaquin 750 Mg Ivpremix(*)) 750 mg in 150 mls @ 100 mls /hr IVPB Q48H [facility] Last Admin: 11/28/18 08:36 Dose: 100 mls/hr Insulin Human Lispro (Humalog*) 0 units SUBCUT [facility]; Protocol Last Admin: 11/27/18 22:02 Dose: 4 units Metoclopramide HCl (Reglan Iv*) 5 mg IV Q6H PRN PRN Reason: NAUSEA/VOMITING Morphine Sulfate (Morphine 4 Mg/Ml Vial (1 Ml)) 1 mg IV Q4HR PRN PRN Reason: PAIN Last Admin: 11/26/18 22:43 Dose: 1 mg Ondansetron HCl (Zofran Inj*) 4 mg IV Q4H PRN PRN Reason: NAUSEA Last Admin: 11/27/18 08:11 Dose: 4 mg Senna (Senokot Tab*) 1 tab PO BID PRN PRN Reason: CONSTIPATION Sodium Bicarbonate (Sodium Bicarbonate (Antacid)*) 1,300 mg PO Q6HR [facility] Last Admin: 11/28/18 06:05 Dose: 1,300 mg Vital Signs - 8 hr 11/28/18 11/28/1819 01:00 02:00 03:00 Temperature Pulse Rate 59 73 72 Respiratory 15 15 14 Rate Blood Pressure 113/54 112/61 112/60 (mmHg) O2 Sat by Pulse 95 94 95 Oximetry 11/28/18 11/28/18 11/28/18 03:01 04:00 04:01 Temperature 97.8 F Pulse Rate 76 71 77 Respiratory 15 15 15 Rate Blood Pressure 142/63 (mmHg) O2 Sat by Pulse 94 95 93 Oximetry 11/28/18 11/28/18 11/28/18 05:00 05:01 06:00 Temperature Pulse Rate 79 77 79 Respiratory 17 16 15 Rate Blood Pressure 146/78 127/61 (mmHg) O2 Sat by Pulse 94 95 96 Oximetry 11/28/18 06:01 Temperature Pulse Rate 81 Respiratory 15 Rate Blood Pressure (mmHg) O2 Sat by Pulse 94 Oximetry Oxygen Devices in Use Now: Nasal Cannula Appearance: 73 yo F in nAD, aAOx3 Eyes: No Scleral Icterus, PERRLA Ears/Nose/Mouth/Throat: NL Teeth, Lips, Gums, Mucous Membranes Moist Neck: NL Appearance and Movements; NL JVP, Trachea Midline Respiratory: Symmetrical Chest Expansion and Respiratory Effort, - - faint bibasiliar crackles Cardiovascular: NL Sounds; No Murmurs; No JVD, RRR Abdominal: NL Sounds; No Tenderness; No Distention Lymphatic: No Cervical Adenopathy Extremities: No Clubbing, Cyanosis, - - trace b/l hand edema, trace ankle edema b/l Skin: No Rash or Ulcers, No Nodules or Sclerosis Neurological: Alert and Oriented x 3, NL Muscle Strength and Tone Result Diagrams: 11/28/18 04:29 11/28/18 04:29 Microbiology and Other Data: Microbiology 11/25/18 00:45 Nasal Screen MRSA (PCR) - Final Nasal Mrsa Not Detected Assess/Plan/Problems-Billing Assessment: 73 yo F h/o DM2, HTN, essential tremor p/w AKF in setting of obstructing renal stone with stay c/b upper GIB with numerous ulcers - Patient Problems (1) GI bleed Comment: GI hemorrhage , with acute hemorrhagic anemia, s/p 2 U PRBC on 10/30, due to Hb <7 today will transfuse 2 more PRBC. Bleeding seems to have stopped c/w PPI gtt Noted to have friable mucosa, 14 ulcer, 1 clipped. Suspect thrombocytopenia and uremia unmasked underlying ulcers. will advance diet to clears (2) Acute kidney failure Comment: in setting of obstruction s/p stenting 11/[address] Schmitz Degree of failure out of proportion to obstruction. Suspect ATN in setting of sepsis contributed. Improving Due to non anion gap metabolic acidosis secondary to renal failure treated with sodium bicarb PO (3) Diabetes Comment: lispro SS (4) Leukocytosis Comment: Cefepime narrowed to CTX now levaquin given thrombocytopenia Urine cx from ER presentation 11/22 pansensitive E.coli Pus drained from behind stone with stent 1 blast cell seen; reviewed by path and Dr. Fournier. Favored reactive in setting of infection repeat CBC tomorrow (5) Thrombocytopenia Comment: Sepsis on admission contributing suspect infection contributing to thrombocytopenia although CTX could have also contibuted, now changed to Levaquin to avoid marrow suppresion Plts declined from 11/22 to 11/24 without heparin s/p Plt transfusion 11/27/18, now improving (6) DVT prophylaxis Comment: SCDs, no anticoagulants due to GI bleed Status and Disposition: inpatient
[2018-11-28] MEDS ORDERED: Levofloxacin 750 MG IVPREMIX(* 750 MG/150 ML BAG IVPB SCH (09:00)
[2018-11-28 15:56] LABS: Hematocrit 21 % (33-41); Hemoglobin 7.1 g/dL (12.0-16.0)
[2018-11-28] MEDS ORDERED: NS 0.9% 500 ML* 500 ML IV ONE (17:48)
[2018-11-28] MEDS ORDERED: NS 0.9% 1000 ML** 1,000 ML IV SCH (18:00)
[2018-11-28 19:23] LABS: Hematocrit 17 % (33-41); Hemoglobin 5.7 g/dL (12.0-16.0); Mean Corpuscular HGB Conc 33 g/dL (31-36); Mean Corpuscular Hemoglobin 28 pg (27-31); Mean Corpuscular Volume 85 fL (80-97); Mean Platelet Volume 10.1 fL (7.4-10.4); Platelet Count 82 10^3/uL (150-450); Red Blood Count 2.04 10^6 /uL (3.70-4.87); Red Cell Distribution Width 17 % (10.5-15); White Blood Count 20.7 10^3/uL (3.5-10.8)
[2018-11-28 19:52] LABS: Immature Granulocytes 2 % (0-9); Lymphocytes % 6 %; Monocytes % 2 %; Neutrophil % 90 %; Nucleated Red Blood Cells/100 1 (0-0)
[2018-11-28] MEDS ORDERED: Desmopressin Acetate* 4 MCG/ML 10 ML VIAL IVPB ONE (20:41)
[2018-11-28] MEDS ORDERED: NS 0.9% IVPB ONE (21:00)
[2018-11-28] MEDS ORDERED: DESMOPRESSIN ACETATE IVPB ONE (21:00)
--- NOTE | 2018-11-28 21:21 | BRIEFOPN ---
Brief Operative Note - Surgery Procedures: OPERATIVE REPORT Pre-op: Upper GI bleeding, hypotension Post-Op: Same Procedure:Insertion of right femoral vein triple lumen catheter Surgeon: MD Sanjay Asst: none Anes: local IVF:none EBL:min Specimen: none Drain: none Wound: 1 To PACU
[2018-11-28] MEDS ORDERED: fentaNYL* 50 MCG/ML 2 ML VIAL (100 MCG VIAL) ONE (21:44)
[2018-11-28] MEDS ORDERED: Midazolam* 1 MG/ML 10 ML VIAL (10 MG) ONE (21:44)
[2018-11-28 21:45] LABS: Activated Partial Thrombo Time 35.5 seconds (26.0-36.3); INR 1.14 (0.77-1.02)
--- NOTE | 2018-11-28 23:57 | OP ---
CC: Dr. Yael Hurt; Dr. Schmitz * DATE OF OPERATION: 11/28/18 - ROOM #ICU-10 DATE OF : 49 SURGEON: Doyle Grace MD. MANAGER PROJECT: None. ANESTHESIA: 1% lidocaine with epinephrine. PRE-OP DIAGNOSIS: Upper gastrointestinal bleeding with hypotension. POST-OP DIAGNOSIS: Upper gastrointestinal bleeding with hypotension. OPERATIVE PROCEDURE: Insertion of triple lumen central catheter into the right femoral vein. ESTIMATED BLOOD LOSS: Trace. IV FLUIDS: None. SPECIMENS: None. WOUND CLASSIFICATION: 1 COMPLICATIONS: None. BRIEF HISTORY: Ms. Delfina Flower is a 73-year-old woman who has developed an upper GI bleed with endoscopy showing large number of both gastric and duodenal ulcers. She has been hypotensive requiring blood transfusions and a central line request was made by the medical service. Due to the urgency of the procedure and the need for rapid placement, the groin line was selected as blood was transfusing in the upper extremities and the spaces were being used by the nursing staff. The procedure was discussed briefly but concisely with the patient. The risks of, but not limited to, bleeding, infection, hemorrhage, retroperitoneal hemorrhage, discomfort, and vascular injury including arterial and venous injury were explained. DESCRIPTION OF PROCEDURE: Written informed consent was obtained. The site was marked with indelible ink. The right groin and upper thigh were prepped and draped in the usual sterile fashion. Time-out verification was completed. 1% lidocaine was infiltrated just medial to the palpable right femoral pulse and an 18-gauge Cook needle was used to puncture the femoral vein without difficulty with good blood return. The guidewire was passed and the tract was dilated. The triple lumen catheter was inserted over the guidewire to the hub. There was good blood return from all 3 ports and they were flushed with saline. The catheter was secured to the skin with several 3-0 silk sutures and a sterile occlusive dressing was applied. The patient tolerated the procedure well. [id number]/[facility] #: [id number] [facility]
--- NOTE | 2018-11-29 00:14 | CONS ---
CONSULTATION REPORT: DATE OF CONSULT: 11/28/18 REFERRING PROVIDER: Dr. Quincy Loredo, hospitalist. REASON FOR CONSULTATION: Upper GI bleed. HISTORY OF PRESENT ILLNESS: Ms. Delfina Flower is a 73-year-old female with a history of diabetes, hypertension, and a history of breast cancer who was recently admitted through the emergency room with abdominal pain and noted to have a 6 mm right ureteral calculus and urinary tract infection. She was started on IV antibiotics, and as her pain persisted, she returned to the emergency room. She was found to have an obstructive uropathy with acute renal failure. Urologic consultation resulted in a trip to the operating room where she underwent a cystoscopy with stent placement and was treated with IV antibiotics and fluid resuscitation. She was initially admitted to the ICU for acute renal failure and her creatinine faye to just over 5 and subsequently was transferred to the floor. Two days ago, she developed an episode of maroon-colored emesis while on the floor and was transferred back to the intensive care unit when she became hypotensive and the hemoglobin dropped acutely. She received total of 4 units of packed red blood cells yesterday and was also noted to have a thrombocytopenia, felt secondary to the renal failure. Yesterday, she underwent an upper endoscopy with Dr. Le. I was not able to discuss the procedure with him, however, reviewing the report commented that the procedure was significant for some old blood in the stomach, but in the antrum there were numerous ulcers in the stomach, the largest about 1.1 cm and there may have been 6 to 7. There was no active bleeding noted. On entering the duodenum, there was a visible vessel in the duodenal bulb with clot and then other numerous ulcers within the duodenum as well. There was no active bleeding once again, and an Endoclip was placed over the visible vessel with good effect. No further intervention was performed. Plan at that time was to continue observation; if there was re-bleeding, consideration of transfer to a higher level of care for consideration of Intervention Radiology with arterial embolization. This evening, she once again developed maroon and black stool from below, became acutely hypotensive and tachycardic, and was noted to have a hemoglobin of 5.7, dropped down from the low 7s over the past 24 hours. Platelet count was noted to be 82,000. Once again, she has undergone aggressive fluid resuscitation with blood and blood products. Surgical consultation has been obtained. She has received 4 units of packed red blood cells in the last 24 hours. PAST MEDICAL HISTORY: 1. Diabetes. 2. Hyperlipidemia. 3. Hypertension. 4. Breast cancer. 5. Essential tremor. 6. Depression. PAST SURGICAL HISTORY: Unremarkable. MEDICATIONS: Include: 1. Amlodipine. 2. Metoprolol. 3. Citalopram. 4. Glipizide. 5. Metformin. 6. Lisinopril. 7. Pravastatin. 8. Aspirin. 9. P[place]oy-3. ALLERGIES: She has no known drug allergies. FAMILY HISTORY: Reviewed, noncontributory to current presentation. SOCIAL HISTORY: She lives at home with her son. She does not use tobacco, alcohol, or abuse drugs. REVIEW OF SYSTEMS: She denies any upper respiratory symptoms of headache or sore throat. She has no chest pain or shortness of breath. Pulmonary: There has been no wheezing or hemoptysis. GI: As per above. She has had some hematemesis in the last 24 hours. : As per above with history of recent renal stones and urosepsis with acute renal failure. PHYSICAL EXAM: Temperature 97.8, pulse 116, blood pressure 98/76. General: She is a pale, overweight female, appears to be in no apparent distress, is awake, alert, and fully conversive. Her lungs were clear to auscultation with normal respiratory effort. Her heart was regular rate and rhythm without murmurs, rubs, or gallops. Her abdomen was soft, but obese. There was no tenderness or hernias noted. Psychiatric: She is awake, alert, and oriented x3. She has normal judgment and insight. IMPRESSION: Massive upper gastrointestinal bleeding over the past 24 to 36 hours with multiple gastric and duodenal ulcers. There was a visible vessel in the duodenal ulcer and this was clipped yesterday. No other intervention was undertaken. The etiology of the ulcers at this point is unclear, but she has failed medical management. At present, she is receiving blood and blood products for further resuscitation. Dr. Marcus Abraham is also seeing the patient this evening and she will undergo a second upper endoscopy in an attempt to identify more definitive location of bleeding. I discussed the care with him this evening. Plan will be to proceed with the upper scope, and if there is any active bleeding, attempt to intervene with the usual standard techniques. If this is not successful and the patient can remain stable with continued blood transfusions, I recommend and Dr. Abraham agrees that we will transfer to a higher level of care for Interventional Radiology with consideration of embolization especially if this is a duodenal ulcer. If she become unstable and is not a candidate for transfer, she will require surgery emergently for control of bleeding. Thank you for the consultation. We will follow her closely with you. [id number]/[facility] #: [id number] LISA
[2018-11-29] MEDS ORDERED: EPINEPHrine SYR 0.1MG/ML* SYRINGE ONE (00:16)
[2018-11-29] MEDS: NS 0.9% 1000 ML** 1,000 ML IV SCH ×3 (00:52→06:16)
[2018-11-29 00:58] LABS: BUN/Creatinine Ratio 37.2 (8-20); EGFR African American 29.9 (>60); EGFR Non-African American 24.7 (>60)
[2018-11-29 01:00] LABS: Calcium 5.8 mg/dL (8.6-10.3)
[2018-11-29] MEDS: Sodium Bicarbonate (ANTACID)* 650 MG TAB PO SCH ×4 (01:19→13:40)
[2018-11-29] MEDS: Insulin LISPRO* 1 UNITS UNIT SUBCUT SCH ×4 (01:20→14:45)
[2018-11-29] MEDS ORDERED: Calcium Gluconate INJ* 2 GM in NS 0.9% 100 ML* 100 ML IV ONE ×2 (01:30→08:00)
[2018-11-29 02:06] LABS: Hematocrit 23 % (33-41); Hemoglobin 7.6 g/dL (12.0-16.0); Mean Corpuscular HGB Conc 33 g/dL (31-36); Mean Corpuscular Hemoglobin 29 pg (27-31); Mean Corpuscular Volume 87 fL (80-97); Mean Platelet Volume 10.7 fL (7.4-10.4); Platelet Count 73 10^3/uL (150-450); Red Blood Count 2.68 10^6 /uL (3.70-4.87); Red Cell Distribution Width 17 % (10.5-15); White Blood Count 23.4 10^3/uL (3.5-10.8)
--- NOTE | 2018-11-29 02:41 | PRO ---
DATE: 11/28/18 - ROOM #ICU-10 REFERRING PHYSICIAN: Yael Hurt MD * PROCEDURE: Upper gastrointestinal endoscopy through to second portion of duodenum with treatment of bleeding duodenal bulb ulcer (epinephrine injections and clipping x2). INDICATION: This 73-year-old woman admitted with urosepsis and with a renal stent in place, developed GI bleeding. Endoscopy yesterday revealed multiple small and medium-sized ulcers and than an ulcer in the duodenal bulb roof area that was clipped x1. There were multiple other mucosal breaks and ulcers. There was no active bleeding at that time. She received 2 units of transfusion yesterday, 2 more this morning and then this afternoon, the pulse went up into the 140s (baseline AFib) and blood pressure down to 70 to 80 systolic. She was given fluid challenges and more blood was started. She had more melena. Her pressure stabilized. Her hemoglobin fell to 5.7, whereas it had gone from yesterday's 5.3 up to 7.9. Immediately preprocedure, her condition was that she was in the ICU receiving a PPI drip and had gotten skilled nursing through her 6 units of packed cells. She also received some platelets yesterday and will be receiving more platelets today. Preprocedure, she seemed comfortable though states she had had a headache earlier. At home, she takes ibuprofen for headaches though emphasizes it was not very often. There was still some uncertainty there. She takes a baby aspirin at home. Informed consent was obtained. Discussion was held regarding reverse of the DNR order temporarily. She was positioned left side down and moderate sedation induced with sequential doses of Versed and fentanyl. EGD: Larynx - no gross abnormality. Esophagus - easily entered, the mucosa was normal. The upper, mid and lower esophagus with EJ junction at 39. There were no erosions. Stomach - there was some minimal, dark, granular, coffee ground material in the fundus. There was no active bleeding and no ulcers. In the antrum, there was a sizable ulcer at 4 o'clock orientation with a clean wide base. There was no blood clot and no bleeding. There were 8 or 9 other small 2 to 4 mm ulcerations. The pylorus appeared unremarkable. Duodenum - at the roof of the bulb there was a clip and a moderately deep ulcer. There was no bleeding from that. The bulb was fairly granular and eroded in general. There was no focal ulcer until the apex of the bulb just getting into the second portion at 4 o'clock orientation, there was an ulcer with a purple clot in the middle. The clot appeared quite fresh with a red component. It was elected to inject epinephrine at the base. This was done 0.5 cc x5. Bleeding was somewhat stirred up, welling up. It was not pulsatile. Clips were deployed at the base. Oozing continued. Three more epinephrine injections were done at the base and bleeding seemed to cease. Visualization was compromised by edema, some adherent blood, but no fresh blood was welling up. Procedure was terminated. IMPRESSION: 1. Gastric ulcers - no evidence that they have contributed to bleeding. 2. Duodenal ulcers - one at the apex of the bulb, high risk and recently bled and bled briefly during application of therapy. It appears that therapeutic endoscopy has reached its limit at this point. Should there be substantial further bleeding, referral for interventional radiology, what appeared to be her best chance. There was an extended report and discussion with the patient's daughter, Kacie Ramos, [phone], and also with Dr. Loredo, covering hospitalist. [id number]/[facility] #: [id number] LISA
[2018-11-29] MEDS: Pantoprazole* 80 mg IN NS 80 MG/250 ML BAG IVPB SCH ×2 (05:20→17:51)
[2018-11-29 05:35] LABS: Hematocrit 22 % (33-41); Hemoglobin 7.4 g/dL (12.0-16.0); Mean Corpuscular HGB Conc 34 g/dL (31-36); Mean Corpuscular Hemoglobin 28 pg (27-31); Mean Corpuscular Volume 85 fL (80-97); Mean Platelet Volume 9.8 fL (7.4-10.4); Platelet Count 96 10^3/uL (150-450); Red Cell Distribution Width 16 % (10.5-15); White Blood Count 22.7 10^3/uL (3.5-10.8)
[2018-11-29 05:52] LABS: BUN/Creatinine Ratio 37.3 (8-20); EGFR African American 32.5 (>60); EGFR Non-African American 26.9 (>60); Magnesium 1.4 mg/dL (1.9-2.7)
[2018-11-29 05:53] LABS: Calcium 6.2 mg/dL (8.6-10.3)
[2018-11-29 05:59] LABS: ABS Basophils 0 10^3/ul (0-0.2); ABS Eosinophils 0.8 10^3/ul (0-0.6); ABS Lymphocytes 2.1 10^3/ul (1.0-4.8); ABS Monocytes 0.9 10^3/ul (0-0.8); ABS Neutrophils 18.9 10^3/ul (1.5-7.7); ABS Nucleated RBC 0 10^3/ul; Eosinophil % 3.5 %; Lymphocyte % 9.1 %; Nucleated Red Blood Cells % 0.1
[2018-11-29] MEDS ORDERED: Magnesium Sulf 4 GM/100 ML IV* 4,000 MG/100 ML BAG IVPB ONE (07:26)
[2018-11-29] MEDS ORDERED: NS 0.9% 1000 ML** 1,000 ML IV SCH (08:21)
--- NOTE | 2018-11-29 08:28 | PN ---
Subjective Date of Service: 11/29/18 Interval History: Pt re-bled last night. Required multiple transfusions and EGD performed by Jarad Burleson showed that one of duodenal ulcers bled. today she feels discouraged. Stated that she has had a good life and is ready to "give up". asked if she is in pain, she denies. Wants to talk with her family about her choice. I tried to encourage pt by so far stable labs and that her condition is treatable. She seems doubtful that she will get better. Objective Active Medications: Acetaminophen (Tylenol Tab*) 650 mg PO Q4H PRN PRN Reason: FEVER/PAIN Last Admin: 11/28/18 19:12 Dose: 650 mg Al Hydrox/Mg Hydrox/Simethicone (Maalox Plus*) 30 ml PO Q6H PRN PRN Reason: INDIGESTION Citalopram Hydrobromide (Celexa Tab*) 40 mg PO DAILY [facility] Last Admin: 11/28/18 08:36 Dose: 40 mg Dextrose (D50w Syringe 50 Ml*) 12.5 gm IV PUSH .FOR FS < 60 - SS PRN PRN Reason: FS < 60 Docusate Sodium (Colace Cap*) 100 mg PO BID PRN PRN Reason: CONSTIPATION Pantoprazole Sodium (Protonix Iv Bag*) 80 mg in 250 mls @ 25 mls/hr IVPB Q10H [facility] Last Admin: 11/29/18 05:20 Dose: 25 mls/hr Levofloxacin/Dextrose (Levaquin 750 Mg Ivpremix(*)) 750 mg in 150 mls @ 100 mls /hr IVPB Q48H [facility] Last Admin: 11/28/18 08:36 Dose: 100 mls/hr Magnesium Sulfate (Magnesium Sulf 4 Gm/100 Ml Iv*) 4,000 mg in 100 mls @ 33.333 mls/hr IVPB ONCE ONE Stop: 11/29/18 10:25 Calcium Gluconate 2 gm/ Sodium (Chloride) 120 mls @ 60 mls/hr IV ONCE ONE Stop: 11/29/18 09:59 Sodium Chloride (Ns 0.9% 1000 Ml) 1,000 mls @ 125 mls/hr IV PER RATE [facility] Insulin Human Lispro (Humalog*) 0 units SUBCUT Q4HR [facility]; Protocol Last Admin: 11/29/18 06:00 Dose: 9 units Metoclopramide HCl (Reglan Iv*) 5 mg IV Q6H PRN PRN Reason: NAUSEA/VOMITING Morphine Sulfate (Morphine 4 Mg/Ml Vial (1 Ml)) 1 mg IV Q4HR PRN PRN Reason: PAIN Last Admin: 11/26/18 22:43 Dose: 1 mg Ondansetron HCl (Zofran Inj*) 4 mg IV Q4H PRN PRN Reason: NAUSEA Last Admin: 11/27/18 08:11 Dose: 4 mg Senna (Senokot Tab*) 1 tab PO BID PRN PRN Reason: CONSTIPATION Sodium Bicarbonate (Sodium Bicarbonate (Antacid)*) 1,300 mg PO Q6HR BUCK Last Admin: 11/29/18 06:03 Dose: Not Given Vital Signs - 8 hr 11/29/18 11/29/18 11/29/18 00:23 00:26 00:31 Temperature Pulse Rate 129 131 124 Respiratory 21 25 19 Rate Blood Pressure 120/58 75/63 (mmHg) O2 Sat by Pulse 100 92 98 Oximetry 11/29/18 11/29/18 11/29/18 00:33 00:36 00:41 Temperature Pulse Rate 119 121 119 Respiratory 18 19 20 Rate Blood Pressure 89/59 85/65 (mmHg) O2 Sat by Pulse 99 97 92 Oximetry 11/29/18 11/29/18 11/29/18 00:46 00:47 00:51 Temperature Pulse Rate 131 128 119 Respiratory 21 20 21 Rate Blood Pressure 76/43 88/73 (mmHg) O2 Sat by Pulse 99 92 98 Oximetry 11/29/18 11/29/18 11/29/18 00:56 01:00 01:01 Temperature Pulse Rate 101 111 100 Respiratory 21 19 20 Rate Blood Pressure 86/44 84/57 (mmHg) O2 Sat by Pulse 96 97 96 Oximetry 11/29/18 11/29/18 11/29/18 01:06 01:10 01:11 Temperature Pulse Rate 82 104 129 Respiratory 22 20 19 Rate Blood Pressure 95/59 70/53 87/66 (mmHg) O2 Sat by Pulse 95 98 97 Oximetry 11/29/18 11/29/18 11/29/18 01:16 01:27 01:28 Temperature Pulse Rate 94 107 110 Respiratory 19 20 18 Rate Blood Pressure 71/61 88/68 (mmHg) O2 Sat by Pulse 96 95 99 Oximetry 11/29/18 11/29/18 11/29/18 01:30 01:35 01:40 Temperature Pulse Rate 126 125 Respiratory 18 26 18 Rate Blood Pressure 91/73 84/59 86/61 (mmHg) O2 Sat by Pulse 96 99 Oximetry 11/29/18 11/29/18 11/29/18 01:46 01:51 01:56 Temperature Pulse Rate 122 110 114 Respiratory 17 20 19 Rate Blood Pressure 95/61 95/59 (mmHg) O2 Sat by Pulse 100 99 99 Oximetry 11/29/18 11/29/18 11/29/18 02:00 02:01 02:06 Temperature Pulse Rate 122 106 111 Respiratory 20 18 17 Rate Blood Pressure 104/58 92/76 (mmHg) O2 Sat by Pulse 100 95 98 Oximetry 11/29/18 11/29/18 11/29/18 02:11 02:15 02:17 Temperature Pulse Rate 118 107 110 Respiratory 19 18 19 Rate Blood Pressure 89/67 77/71 93/60 (mmHg) O2 Sat by Pulse 99 92 97 Oximetry 11/29/18 11/29/18 11/29/18 02:21 02:25 02:30 Temperature Pulse Rate 105 93 Respiratory 18 16 17 Rate Blood Pressure 85/67 97/77 81/65 (mmHg) O2 Sat by Pulse 85 87 Oximetry 11/29/18 11/29/18 11/29/18 02:35 02:40 02:47 Temperature Pulse Rate 108 98 97 Respiratory 20 19 18 Rate Blood Pressure 97/67 112/81 103/58 (mmHg) O2 Sat by Pulse 95 90 100 Oximetry 11/29/18 11/29/18 11/29/18 02:50 02:56 03:00 Temperature Pulse Rate 119 Respiratory 18 18 21 Rate Blood Pressure 108/81 108/62 91/63 (mmHg) O2 Sat by Pulse 98 Oximetry 11/29/18 11/29/18 11/29/18 03:01 03:05 03:16 Temperature Pulse Rate 119 117 103 Respiratory 15 19 18 Rate Blood Pressure 97/66 118/79 (mmHg) O2 Sat by Pulse 93 100 100 Oximetry 11/29/18 11/29/18 11/29/18 03:21 03:25 03:31 Temperature Pulse Rate 108 118 Respiratory 19 20 19 Rate Blood Pressure 90/71 90/68 72/48 (mmHg) O2 Sat by Pulse 98 100 Oximetry 11/29/18 11/29/18 11/29/18 03:32 03:36 03:41 Temperature Pulse Rate 117 Respiratory 18 20 20 Rate Blood Pressure 86/69 84/62 (mmHg) O2 Sat by Pulse 100 Oximetry 11/29/18 11/29/18 11/29/18 03:45 03:50 03:56 Temperature Pulse Rate Respiratory 20 20 20 Rate Blood Pressure 106/69 101/85 69/41 (mmHg) O2 Sat by Pulse Oximetry 11/29/18 11/29/18 11/29/18 03:57 04:00 04:01 Temperature 97.8 F Pulse Rate Respiratory 18 19 19 Rate Blood Pressure 88/63 (mmHg) O2 Sat by Pulse Oximetry 11/29/18 11/29/18 11/29/18 04:05 04:11 04:16 Temperature Pulse Rate Respiratory 20 20 18 Rate Blood Pressure 74/51 100/75 (mmHg) O2 Sat by Pulse Oximetry 11/29/18 11/29/18 11/29/18 04:21 04:26 04:31 Temperature Pulse Rate 110 97 Respiratory 20 19 19 Rate Blood Pressure 87/62 98/61 98/51 (mmHg) O2 Sat by Pulse 100 99 Oximetry 11/29/18 11/29/18 11/29/18 04:35 04:46 04:51 Temperature Pulse Rate 88 103 106 Respiratory 28 16 20 Rate Blood Pressure 96/67 89/59 78/42 (mmHg) O2 Sat by Pulse 86 93 100 Oximetry 11/29/18 11/29/18 11/29/18 04:52 04:56 05:00 Temperature Pulse Rate 99 115 Respiratory 19 20 19 Rate Blood Pressure 85/60 90/51 (mmHg) O2 Sat by Pulse 99 96 Oximetry 11/29/18 11/29/18 11/29/18 05:01 05:05 05:11 Temperature Pulse Rate 121 118 113 Respiratory 19 20 19 Rate Blood Pressure 80/64 92/64 87/43 (mmHg) O2 Sat by Pulse 99 99 99 Oximetry 11/29/18 11/29/18 11/29/18 05:16 05:17 05:20 Temperature Pulse Rate 115 94 129 Respiratory 21 18 20 Rate Blood Pressure 76/65 71/51 91/57 (mmHg) O2 Sat by Pulse 97 98 98 Oximetry 11/29/18 11/29/18 11/29/18 05:26 05:30 05:36 Temperature Pulse Rate 125 113 118 Respiratory 18 19 19 Rate Blood Pressure 101/54 104/59 97/71 (mmHg) O2 Sat by Pulse 99 98 98 Oximetry 11/29/18 11/29/18 11/29/18 05:41 05:45 05:51 Temperature Pulse Rate 126 108 107 Respiratory 20 23 19 Rate Blood Pressure 85/53 98/72 87/61 (mmHg) O2 Sat by Pulse 97 96 96 Oximetry 11/29/18 11/29/18 11/29/18 05:56 06:00 06:01 Temperature Pulse Rate 109 104 Respiratory 18 20 20 Rate Blood Pressure 68/50 93/60 (mmHg) O2 Sat by Pulse 99 86 Oximetry 11/29/18 11/29/18 11/29/18 06:05 06:11 06:15 Temperature Pulse Rate 93 103 118 Respiratory 20 20 20 Rate Blood Pressure 91/75 101/67 113/73 (mmHg) O2 Sat by Pulse 100 98 100 Oximetry 11/29/18 11/29/18 11/29/18 06:20 06:26 06:31 Temperature Pulse Rate 119 115 106 Respiratory 19 19 18 Rate Blood Pressure 112/67 115/67 120/80 (mmHg) O2 Sat by Pulse 99 90 97 Oximetry 11/29/18 11/29/18 11/29/18 06:36 06:41 06:46 Temperature Pulse Rate 102 101 100 Respiratory 18 21 13 Rate Blood Pressure 114/77 107/63 115/56 (mmHg) O2 Sat by Pulse 86 90 90 Oximetry 11/29/18 11/29/18 11/29/18 06:51 06:56 07:00 Temperature Pulse Rate 92 100 Respiratory 25 24 18 Rate Blood Pressure 116/64 111/73 (mmHg) O2 Sat by Pulse 97 88 Oximetry 11/29/18 11/29/18 11/29/18 07:01 07:06 07:11 Temperature Pulse Rate 87 96 Respiratory 20 18 22 Rate Blood Pressure 106/79 92/55 90/58 (mmHg) O2 Sat by Pulse 91 84 Oximetry 11/29/18 11/29/18 11/29/18 07:16 07:21 07:26 Temperature Pulse Rate 92 105 97 Respiratory 19 18 19 Rate Blood Pressure 109/73 119/85 102/69 (mmHg) O2 Sat by Pulse 90 96 92 Oximetry Oxygen Devices in Use Now: None Appearance: 73 yo F in NAD, AAOx3 Eyes: No Scleral Icterus, PERRLA Ears/Nose/Mouth/Throat: NL Teeth, Lips, Gums, Mucous Membranes Moist Neck: NL Appearance and Movements; NL JVP, Trachea Midline Respiratory: Symmetrical Chest Expansion and Respiratory Effort, - - crackles at b/l lower lungs Cardiovascular: - - irregular, on telem-sinus with frequent PAC's Abdominal: NL Sounds; No Tenderness; No Distention Lymphatic: No Cervical Adenopathy Extremities: - - generalized edema of all extr noted Skin: No Nodules or Sclerosis Neurological: Alert and Oriented x 3, NL Muscle Strength and Tone Result Diagrams: 11/29/18 05:17 11/29/18 05:17 Microbiology and Other Data: Microbiology 11/25/18 00:45 Nasal Screen MRSA (PCR) - Final Nasal Mrsa Not Detected Assess/Plan/Problems-Billing Assessment: 73 yo F h/o DM2, HTN, essential tremor p/w AKF in setting of obstructing renal stone with stay c/b upper GIB with numerous ulcers - Patient Problems (1) GI bleed Comment: GI hemorrhage , with acute hemorrhagic anemia due nto muliple gastric and duodenal ulcers. Pt rebled last night and gastric ulcer was injected with epi and clipped again. s/p total of 7 U PRBC transfusion since admission adn 2 packs of Plateletes. c/w PPI gtt Noted to have friable mucosa, 14 ulcers, 1 clipped twice Suspect thrombocytopenia and uremia unmasked underlying ulcers. so far this AM hemodynamically stable. as per dw GI and surgery pt's has a more the 50% risk of bleeding again and should be transferred for poss IR embolization . Pt refuses to be transferred and refuses potential surgery. will await to talk with pt and family together. (2) Acute kidney failure Comment: in setting of obstruction s/p stenting 11/[address] Schmitz Degree of failure out of proportion to obstruction. Suspect ATN in setting of sepsis and bleeding contributed. Improving Due to non anion gap metabolic acidosis secondary to renal failure treated with sodium bicarb PO (3) Diabetes Comment: lispro SS (4) Leukocytosis Comment: Cefepime narrowed to CTX then switched to levaquin given thrombocytopenia Urine cx from ER presentation 11/22 pansensitive E.coli Pus drained from behind stone with stent Cx so far neg (5) Thrombocytopenia Comment: Sepsis on admission contributing suspect infection contributing to thrombocytopenia although CTX could have also contibuted, now changed to Levaquin to avoid marrow suppresion Plts declined from 11/22 to 11/24 without heparin s/p Plt transfusion 11/27/18 and 11/28/18, now improving (6) DVT prophylaxis Comment: SCDs, no anticoagulants due to GI bleed Status and Disposition: inpatient
--- NOTE | 2018-11-29 09:35 | PN ---
Progress Note - Progress Note Date of Service: 11/29/18 SOAP: Subjective: Awake and alert this morning-no complaints Hemodynamically stable Objective: Temp Pulse Resp BP Pulse Ox 97.8 F 97 19 102/69 92 11/29/18 04:00 11/29/18 07:26 11/29/18 07:26 11/29/18 07:26 11/29/18 07:26 Intake & Output 11/27/18 11/28/18 11/29/18 11/30/18 06:59 06:59 06:59 06:59 Intake Total 1062 5084 9637 Output Total 1770 1560 1955 125 Balance -708 3524 7682 -125 Weight 225 lb 246 lb Intake: IV Fluids 435 3728 3990 Calcium Gluconate 120 LR 435 NS (0.9%) 3728 3822 desmopression 48 IVPB 127 55 500 LR 127 NS (0.9%) 500 desmopression 55 Medicated IV 405 548 Protonix 405 548 Oral 500 3580 Packed Cells 698 1019 Platelets 198 0 Output: Urine 0 Le 1750 1560 1955 125 Emesis 20 0 Other: Date of Last Bowel 11/28 Movement # Bowel Movements 1 1 1 Estimated Stool Amount Small Large Large PEX: Comfortable Awake and alert-oriented X 3 Abd is soft and slightly distended. Few bowel sounds. Mild tenderness throughout , no guarding. Laboratory Last Values WBC 22.7 10^3/uL (3.5-10.8) H 11/29/18 05:17 RBC 2.60 10^6 /uL (3.70-4.87) L 11/29/18 05:17 Hgb 7.4 g/dL (12.0-16.0) L 11/29/18 05:17 Hct 22 % (33-41) L 11/29/18 05:17 MCV 85 fL (80-97) 11/29/18 05:17 MCH 28 pg (27-31) 11/29/18 05:17 MCHC 34 g/dL (31-36) 11/29/18 05:17 RDW 16 % (10.5-15) H 11/29/18 05:17 Plt Count 96 10^3/uL (150-450) L 11/29/18 05:17 MPV 9.8 fL (7.4-10.4) 11/29/18 05:17 Neut % (Auto) 83.4 % 11/29/18 05:17 Lymph % (Auto) 9.1 % 11/29/18 05:17 [place] % (Auto) 3.9 % 11/29/18 05:17 Eos % (Auto) 3.5 % 11/29/18 05:17 Baso % (Auto) 0.1 % 11/29/18 05:17 Absolute Neuts (auto) 18.9 10^3/ul (1.5-7.7) H 11/29/18 05:17 Absolute Lymphs (auto) 2.1 10^3/ul (1.0-4.8) 11/29/18 05:17 Absolute Monos (auto) 0.9 10^3/ul (0-0.8) H 11/29/18 05:17 Absolute Eos (auto) 0.8 10^3/ul (0-0.6) H 11/29/18 05:17 Absolute Basos (auto) 0 10^3/ul (0-0.2) 11/29/18 05:17 Absolute Nucleated RBC 0 10^3/ul 11/29/18 05:17 Immature Gran % 2 % (0-9) 11/28/18 18:56 Neutrophils % 90 % 11/28/18 18:56 Band Neutrophils % 2 % (0-8) 11/28/18 18:56 Lymphocytes % 6 % 11/28/18 18:56 Monocytes % 2 % 11/28/18 18:56 Eosinophils % 1 % 11/24/18 20:57 Promyelocytes % 1 % 11/24/18 20:57 Blast Cells % 1 % H* 11/24/18 20:57 Nucleated RBC % 0.1 11/29/18 05:17 Abs Neuts (Manual) 19.0 10^3/ul (1.5-7.7) H 11/28/18 18:56 Abs Lymphs (Manual) 1.3 10^3/ul (1.0-4.8) 11/28/18 18:56 Abs Monocytes (Manual) 0.4 10^3/ul (0-0.8) 11/28/18 18:56 Absolute Eos (Manual) 0.06 10^3/ul (0-0.6) 11/24/18 20:57 Nucleated RBCs/100 WBC 1 (0-0) H 11/28/18 18:56 Differential Comment 11/24/18 20:57 Normal RBC Morphology Not Reportable 11/28/18 18:56 Polychromasia 1+ 11/25/18 03:30 Anisocytosis 1+ 11/28/18 18:56 [place] Cells 1+ 11/25/18 03:30 Elliptocytes 2+ 11/28/18 18:56 Schistocytes Present 11/26/18 20:20 Hem Pathologist Commnt 11/27/18 06:42 Plt Count 57 10^3/ul (150-450) L 11/26/18 20:20 INR (Anticoag Therapy) 1.14 (0.77-1.02) H 11/28/18 21:22 APTT 35.5 seconds (26.0-36.3) 11/28/18 21:22 Fibrinogen 421.0 mg/dL (110.8-404.3) H 11/26/18 20:20 D-Dimer, Quantitative > 1050 ng/mL (Less Than 230) H 11/26/18 20:20 Sodium 137 mmol/L (135-145) 11/29/18 05:17 Potassium 4.0 mmol/L (3.5-5.0) 11/29/18 05:17 Chloride 115 mmol/L (101-111) H 11/29/18 05:17 Carbon Dioxide 17 mmol/L (22-32) L 11/29/18 05:17 Anion Gap 5 mmol/L (2-11) 11/29/18 05:17 BUN 69 mg/dL (6-24) H 11/29/18 05:17 Creatinine 1.85 mg/dL (0.51-0.95) H 11/29/18 05:17 Est GFR ( Amer) 32.5 (>60) 11/29/18 05:17 Est GFR (Non-Af Amer) 26.9 (>60) 11/29/18 05:17 BUN/Creatinine Ratio 37.3 (8-20) H 11/29/18 05:17 Glucose 298 mg/dL (70-100) H 11/29/18 05:17 POC Glucose (mg/dL) 377 mg/dL (70-100) H 11/28/18 21:23 Lactic Acid 1.1 mmol/L (0.5-2.0) 11/29/18 05:36 Calcium 6.2 mg/dL (8.6-10.3) L* 11/29/18 05:17 Ionized Calcium 1.01 mmol/L (1.16-1.32) L 11/29/18 05:17 Phosphorus 4.6 mg/dL (2.5-5.0) 11/27/18 06:42 Magnesium 1.4 mg/dL (1.9-2.7) L 11/29/18 05:17 Total Bilirubin 0.40 mg/dL (0.2-1.0) 11/24/18 20:57 AST 39 U/L (13-39) 11/24/18 20:57 ALT 26 U/L (7-52) 11/24/18 20:57 Alkaline Phosphatase 204 U/L (34-104) H 11/24/18 20:57 Total Creatine Kinase 157 U/L (10-223) 11/26/18 20:20 C-Reactive Protein 248.05 mg/L (<8.01) H 11/24/18 20:57 Total Protein 6.9 g/dL (6.4-8.9) 11/24/18 20:57 Albumin 3.6 g/dL (3.2-5.2) 11/24/18 20:57 Globulin 3.3 g/dL (2-4) 11/24/18 20:57 Albumin/Globulin Ratio 1.1 (1-3) 11/24/18 20:57 Urine Color Yellow 11/24/18 22:16 Urine Appearance Turbid 11/24/18 22:16 Urine pH 5.0 (5-9) 11/24/18 22:16 Ur Specific [place] 1.014 (1.010-1.030) 11/24/18 22:16 Urine Protein Negative (Negative) 11/24/18 22:16 Urine Ketones Negative (Negative) 11/24/18 22:16 Urine Blood Negative (Negative) 11/24/18 22:16 Urine Nitrate Negative (Negative) 11/24/18 22:16 Urine Bilirubin Negative (Negative) 11/24/18 22:16 Urine Urobilinogen Negative (Negative) 11/24/18 22:16 Ur Leukocyte Esterase 1+ (Negative) A 11/24/18 22:16 Urine WBC (Auto) 2+(11-20/hpf) (Absent) A 11/24/18 22:16 Urine RBC (Auto) 1+(3-5/hpf) (Absent) A 11/24/18 22:16 Ur Squamous Epith Cells Present (Absent) A 11/24/18 22:16 Amorphous Crystals Present (Absent) A 11/24/18 22:16 Urine Bacteria Absent (Absent) 11/24/18 22:16 Urine Glucose Negative (Negative) 11/24/18 22:16 Blood Type O Positive 11/27/18 08:30 Antibody Screen Negative 11/27/18 08:30 Crossmatch See Detail 11/28/18 20:36 Transfusion React Rpt 11/29/18 03:29 Donor Unit # [id number] 11/29/18 03:29 Post-Trans Blood Type O Positive 11/29/18 03:29 Post-Trans ASHLEY Negative 11/29/18 03:29 Assessment: UGI bleed-both gastric and duodenal ulcers noted on EGD, duodenal ulcer noted to be bleeding last night-injected and clipped, does not appear to be continuing hemorrhage She has received 7 U PRBC's total this admission, platelets also given Acute renal failure-markedly improved Plan: I would recommend transfer to higher level of care for consideration of IR embolization-I think she is at high risk of re-bleeding and with multiple ulcers , emergent surgery would be challenging and with high risk. I would not wait until re-bleed to transfer, proceed while stable for optimal results. However she has expressed that she does not want transfer or emergent surgery and is quite adamant about this. Her daughter will be coming in later today to discuss further. I discussed with Dr. Manzanares and she will be talking with the patient and her family today.
[2018-11-29 10:22] LABS: Platelet Count 155 10^3/uL (150-450)
[2018-11-29] MEDS: Citalopram TAB* 40 MG PO SCH (10:45)
[2018-11-29 15:06] LABS: Hematocrit 19 % (33-41); Hemoglobin 6.8 g/dL (12.0-16.0); Mean Corpuscular HGB Conc 36 g/dL (31-36); Mean Corpuscular Hemoglobin 30 pg (27-31); Mean Corpuscular Volume 84 fL (80-97); Mean Platelet Volume 9.1 fL (7.4-10.4); Platelet Count 170 10^3/uL (150-450); Red Blood Count 2.26 10^6 /uL (3.70-4.87); Red Cell Distribution Width 16 % (10.5-15); White Blood Count 20.1 10^3/uL (3.5-10.8)
[2018-11-29 15:43] LABS: ABS Basophils 0 10^3/ul (0-0.2); ABS Eosinophils 0.1 10^3/ul (0-0.6); ABS Lymphocytes 3.3 10^3/ul (1.0-4.8); ABS Monocytes 1.4 10^3/ul (0-0.8); ABS Neutrophils 15.3 10^3/ul (1.5-7.7)
[2018-11-29 15:49] LABS: Lymphocytes % 17 %; Monocytes % 3 %; Neutrophil % 73 %
[2018-11-29 15:50] LABS: Immature Granulocytes 7 % (0-9); Metamyelocytes % 3 % (0-2); Myelocytes % 3 % (0-1); Nucleated Red Blood Cells/100 1 (0-0)
[2018-11-29 15:51] LABS: ABS Neutrophils 16.1 10^3/ul (1.5-7.7)
--- NOTE | 2018-11-29 17:16 | TRS ---
CC: Dr. Yael Hurt; Dr. Pelayo; Dr. Peoples; Dr. Abraham; Dr. Le; Dr. Grace; Dr. Mckeon, [employer], [place], [place]; Dr. Schmitz* TRANSFER SUMMARY: PRIMARY CARE PROVIDER: Dr. Yael Hurt. DATE OF ADMISSION: 10/27/18 DATE OF TRANSFER TO [facility]: 11/29/18 REASON FOR TRANSFER: Duodenal ulcer bleed and acute GI bleed due to that. SECONDARY DIAGNOSES: 1. The patient was admitted for sepsis due to urinary tract infection and right - sided hydronephrosis status post right-sided ureteral stent placed by Dr. Schmitz on 11/25/18. 2. Thrombocytopenia subsequent to cephalosporin use and sepsis. 3. Hemorrhagic shock noted on 11/28/18 in the ED due to recurrent duodenal ulcer bleeding and subsequent anemia due to that, status post total of 7 units of packed red blood cell transfusion. 4. Thrombocytopenia, status post 2 packed cells platelets transfusion during the last 48 hours. 5. An acute kidney failure due to acute tubular necrosis and prerenal causes. PAST MEDICAL HISTORY: 1. History of diabetes mellitus type 2, on oral agents. 2. History of breast cancer, status post mastectomy. 3. History of hypertension. 4. Hyperlipidemia. 5. Status post bilateral inguinal hernia repair. 6. Essential tremor. 7. Depression. CURRENT MEDICATIONS: Include: 1. Acetaminophen on a p.r.n. basis. 2. Celexa 40 mg daily. 3. Insulin lispro sliding scale. 4. Levaquin 750 mg every 48 hours. 5. Reglan 5 mg IV on a p.r.n. basis. 6. Morphine 1 mg every 4 hours on a p.r.n. basis. 7. Zofran 4 mg every 4 hours on a p.r.n. basis. 8. Protonix drip. 9. Sodium bicarbonate 1300 mg p.o. every 6 hours scheduled. 10. Normal saline at 125 mL/hour. PROCEDURES PERFORMED DURING THE HOSPITAL STAY: Include: 1. Cystoscopy, retrograde pyelography performed by Dr. Schmitz on 11/25/18 for right hydronephrosis and hydroureter. 2. Upper endoscopy performed by Dr. Le on 11/27/18. 3. Upper endoscopy performed by Dr. Abraham on 11/28/18. CONSULTATIONS DURING THE HOSPITAL STAY: Included Dr. Schmitz from Urology, Dr. Le and Dr. Abraham from Gastroenterology, Dr. Grace from General Surgery. During the patient's hospital stay, she was transfused a total of 7 units of packed red blood cells and 2 packs of platelets. LABORATORY DATA AND STUDIES PERFORMED DURING THE HOSPITAL STAY: Included: On 11/29/18 in the morning, the patient's white blood cell count of 22.7, hemoglobin of 7.4, hematocrit of 22, and platelets of 96. Sodium 137, potassium 4.0, chloride 115, carbon dioxide 17, BUN 69, creatinine 1.85. Calcium of 6.2, magnesium of 1.4 that was on the morning on 11/29/18. The patient's creatinine was 5.2 on the day of admission. The patient's hemoglobin at lowest was 5.3 on 11/27/18. Most recent portable chest x-ray obtained on 11/27/18, impression: "Cardiomegaly with now definite pneumonia is identified." CT of abdomen and pelvis obtained on admission, impression: "Minimally advanced moderately obstructing 6 mm calculus, now located in the right UV junction. Cholelithiasis. Distal colonic diverticulosis." The patient's first upper endoscopy procedure report obtained by Dr. Le on 11/27/18, impression: "Complete EGD with biopsies. Antral ulcerations, numerous. Duodenal ulcerations, numerous with 1 visible vessel with clots, status post Endoclip placement with good effect. No fresh blood on exam. Some old blood throughout the stomach." On 11/28/18, procedure report of an upper endoscopy performed by Dr. Abraham, impression: "Gastric ulcers. No evidence that they have contributed to bleeding. Duodenal ulcers. One at the apex of the bulb, high risk and recently bled briefly during application of therapy. It appears that the therapeutic endoscopy has reached its limit at this point. Should there be substantial further bleeding, referal for Interventional Radiology is appeared to be the best chance." MICROBIOLOGY STUDIES OBTAINED DURING THE HOSPITAL STAY: Included urine cultures with no growth and blood cultures with no growth obtained on 11/24/18 and 11/25/18. HOSPITALIZATION COURSE: Delfina Flower is a 73-year-old female with history of diabetes and remote breast cancer, who presented to the hospital complaining of nausea, vomiting, and right flank plain. She was noted to have right-sided hydronephrosis and obstructing ureteral stone. When Dr. Schmitz was removing the stone, it appears that there was purulent material in the urine. Nevertheless, the patient's cultures failed to demonstrate any bacteria. Despite that, the patient had been treated for presumed sepsis with UTI initially with cefepime, then switched to ceftriaxone. The patient started getting thrombocytopenic on the second day of admission with platelets dropping from 105 to 90, then to 55; and at that point, her ceftriaxone was stopped and switched to Levaquin. On , the patient developed hematemesis. The patient was transferred to the intensive care unit and urgently taken to the endoscopy suite for upper endoscopy. That was performed by Dr. Le who counted close to 14 ulcers throughout the stomach and duodenum. One of the duodenal ulcers was endoclipped due to acute bleeding. The patient continued to be observed in the intensive care unit over the day of 11/28/18 and advanced to clear liquid diet without any problems until the evening when she passed couple of maroon stools and developed hypotension and tachycardia. At that point, the patient was evaluated by Dr. Grace from Surgery and Dr. Abraham from Gastroenterology. Dr. Abraham took the patient for upper endoscopy again and clipped and injected with epinephrine another duodenal ulcer. The patient developed hemorrhagic stoke, which was treated with intravenous fluids and transfusions with good results. By the morning on 11/29/18, she was hemodynamically stable with hemoglobin at 7.4. At that point, after discussion with Dr. Abraham and Dr. Grace, it was noted that the patient has a greater than 50% possibility of re-bleeding. At this point, the patient was offered to be transferred to a tertiary care center where Interventional Radiology could perform duodenal artery embolization. The patient, although reluctant initially, agreed to the transfer for the procedure. The case was discussed with with Dr. Mckeon, the test case developer from [facility] [place], who accepted the patient to his service. For physical exam at the time of discharge, please see the daily progress notes , but shortly the patient is alert and oriented x3. She has diffuse edema from the intravenous fluid resuscitation, but she does not require oxygen. She has fine crackles at bilateral lung bases. Her abdomen is slightly distended, but not tender. Bowel sounds are present on auscultation of her abdomen. Neurologically, she is grossly intact with speech clear and cranial nerves II through XII grossly intact and motor strength otherwise 5/5 bilaterally. The patient is going to be transferred to [facility] [place] for further definitive treatment of the duodenal ulcers. Please note that this is a short summary of the patient's hospitalization. Please refer to further medical records for details. TIME SPENT: Approximately 50 minutes were spent on the patient's discharge/ transfer summary. [id number]/[facility] #: [id number] MTDD
[2018-11-29 17:51] VITALS: BP 139/81
[2018-12-01 00:18] LABS: Stool Helicobacter pylori Ag Negative (Negative)
== END 2018-11-29 17:00 | disposition short-term general hospital (02) | DRG 853 ==
LOC: ED 20:21 → ICU 22:50 → MED 11-26 11:46 → ICU 11-27 11:52
PROVIDERS: ADMIT Pediatrics; ATTEND Internal Medicine
PROC: BT1DZZZ Fluoroscopy of Right Kidney, Ureter and Bladder (ICD-10-PCS; 2018-11-25)
PROC: 0T768DZ Dilation of Right Ureter with Intraluminal Device, Via Natural or Artificial Opening Endoscopic (ICD-10-PCS; principal; 2018-11-25 08:00)
PROC: 30233R1 Transfusion of Nonautologous Platelets into Peripheral Vein, Percutaneous Approach (ICD-10-PCS; 2018-11-27)
PROC: 30233N1 Transfusion of Nonautologous Red Blood Cells into Peripheral Vein, Percutaneous Approach (ICD-10-PCS; 2018-11-27)
PROC: 0DH67UZ Insertion of Feeding Device into Stomach, Via Natural or Artificial Opening (ICD-10-PCS; 2018-11-27)
PROC: 0W3P8ZZ Control Bleeding in Gastrointestinal Tract, Via Natural or Artificial Opening Endoscopic (ICD-10-PCS; 2018-11-27)
PROC: 0DB98ZX Excision of Duodenum, Via Natural or Artificial Opening Endoscopic, Diagnostic (ICD-10-PCS; 2018-11-27)
PROC: 0DB68ZX Excision of Stomach, Via Natural or Artificial Opening Endoscopic, Diagnostic (ICD-10-PCS; 2018-11-27)
PROC: 06HM33Z Insertion of Infusion Device into Right Femoral Vein, Percutaneous Approach (ICD-10-PCS; 2018-11-28)
PROC: 0W3P8ZZ Control Bleeding in Gastrointestinal Tract, Via Natural or Artificial Opening Endoscopic (ICD-10-PCS; 2018-11-28)
DX: A41.9 Sepsis, unspecified organism (principal); R57.8 Other shock; K26.4 Chronic or unspecified duodenal ulcer with hemorrhage; N17.0 Acute kidney failure with tubular necrosis; N13.6 Pyonephrosis; D62 Acute posthemorrhagic anemia; E11.9 Type 2 diabetes mellitus without complications; F32.9 Major depressive disorder, single episode, unspecified; E78.5 Hyperlipidemia, unspecified; I10 Essential (primary) hypertension; G25.0 Essential tremor; K57.30 Diverticulosis of large intestine without perforation or abscess without bleeding; K80.20 Calculus of gallbladder without cholecystitis without obstruction; B96.20 Unspecified Escherichia coli [E. coli] as the cause of diseases classified elsewhere; K44.9 Diaphragmatic hernia without obstruction or gangrene; D69.6 Thrombocytopenia, unspecified; T36.1X5A Adverse effect of cephalosporins and other beta-lactam antibiotics, initial encounter; Z85.3 Personal history of malignant neoplasm of breast; Z90.12 Acquired absence of left breast and nipple; Y92.9 Unspecified place or not applicable; Z79.4 Long term (current) use of insulin
CPT/HCPCS: 36415; 71045; 74018; 74176; 74420; 80048; 80053; 81003; 81015; 82330; 82550; 82941; 83605; 83735; 84100; 85014; 85018; 85025; 85027; 85049; 85060; 85362; 85384; 85610; 85730; 86078; 86140; 86850; 86900; 86901; 86922; 87040; 87086; 87338; 87641; 93005; 99156; 99157; 99285; A9270-GY; C1876; J0171; J0610; J0692; J0696; J1100; J1644; J1885; J2250; J2270; J2405; J2597; J2704; J3010; J3475; P9035; P9040

== ENCOUNTER 2019-01-13 08:45 | Day surgery (SDC) | payer MEDICARE ==
--- NOTE | 2019-01-09 15:08 | HP ---
CC: Dr. Hurt ADMITTING HISTORY AND PHYSICAL: DATE OF ADMISSION: 01/13/19 ADMITTING DIAGNOSES: 1. Right hydronephrosis. 2. Calculus, right ureter. PLANNED PROCEDURE: Right ureteroscopy, possible laser, and stent replacement. SURGEON: Dr. Schmitz. HISTORY OF PRESENT ILLNESS: Delfina Flower is a 73-year-old lady, who had undergone urgent right carlos nt insertion about 4 to 5 weeks ago because of an obstructing calculus associated with sepsis. She s ubsequently had a GI bleed and was transferred to [facility] and had received 7 units of packed red cells at [facility] and an additional 3 units at [facility] because of the G I bleed. She has recovered from that and is now being brought in for treatment of the right ureteral calculus. PAST MEDICAL HISTORY: Significant for: 1. Diabetes mellitus. 2. History of AFib. 3. Recent GI bleed. 4. Hypertension. 5. Complicated urinary tract infection. MEDICATIONS ON ADMISSION: 1. Protonix 40 mg twice a day. 2. Carafate 1 g 4 times a day. 3. Amlodipine 10 mg daily. 4. Celexa 40 mg daily. 5. Glipizide 10 mg twice a day. 6. Lisinopril 20 mg daily. 7. Metformin 1000 mg twice a day. 8. Metoprolol 100 mg daily. 9. Pravastatin 20 mg daily. ALLERGIES: No known drug allergies. FAMILY HISTORY: Negative for stones. SOCIAL HISTORY: Smoking history: She is a nonsmoker. REVIEW OF SYSTEMS: She denies any chest pain or shortness of breath. PHYSICAL EXAMINATION GENERAL: Reveals a pleasant, elderly lady. VITAL SIGNS: Blood pressure is 144/84, pulse 75 per minute, temperature 97.2, oxygen saturation 98% on room air. LUNGS: Clear. CARDIOVASCULAR: S1, S2. No murmurs. ABDOMEN: Soft with mild right flank tenderness. IMPRESSION: She had a recent urinary tract infection, which was successfully treated and her last u rine culture on 01/02/19 revealed no growth. PLAN: Plan is right ureteroscopy, possible laser, and stent replacement. [id number]/[facility] #: [id number]
[~2019-01-13 08:45] MED LIST: Buffered Lidocaine 1% SYRIN* 1 ML/SYRINGE INTRADERM ONE; Famotidine IV* 10 MG/ML 2 ML (20 mg) IV ONE; Famotidine IV* 10 MG/ML 2 ML (20 mg) ONE; Gentamicin ADULT (*) 160 MG in NS 0.9% 100 ML* 100 ML IVPB ONE; Lactated Ringers 1000 ML Bag* 1,000 ML IV SCH; cefTRIAXone(*) 2 GM ADDV.VIAL IVPB ONE
[2019-01-13] MEDS ORDERED: Iohexol 180 (CONTRAST) 10 ML SDV IV ONE (09:11)
[2019-01-13 09:25] LABS: Hematocrit 36 % (35-47); Hemoglobin 12.2 g/dL (12.0-16.0)
[2019-01-13] MEDS ORDERED: fentaNYL* 50 MCG/ML 2 ML VIAL (100 MCG VIAL) ONE (09:33)
[2019-01-13] MEDS ORDERED: Lidocaine 2% PF * 5 ML VIAL ONE (09:34)
[2019-01-13] MEDS ORDERED: Ondansetron INJ* 2 MG/ML VIAL ONE (09:34)
[2019-01-13] MEDS ORDERED: Propofol* 10 MG/ML 20 ML BTL ONE (09:34)
[2019-01-13] MEDS ORDERED: EPHEDrine (Pressors)* 50 MG/ML VIAL ONE (10:17)
[2019-01-13] MEDS ORDERED: fentaNYL* 50 MCG/ML 2 ML VIAL (100 MCG VIAL) IV PRN (10:19)
[2019-01-13] MEDS ORDERED: DiMENhydriNATE IV* 50 MG/ML VIAL IV PUSH PRN (10:19)
[2019-01-13] MEDS ORDERED: Naloxone* 0.4 MG/ML 1 ML VIAL IV PRN (10:19)
[2019-01-13 12:07] VITALS: BP 126/77
--- NOTE | 2019-01-13 12:39 | OP ---
CC: Dr. Yael Hurt; Urban Schmitz MD* OPERATIVE REPORT: DATE OF OPERATION: 01/13/19 - [facility] DATE OF : 49 SURGEON: Urban Schmitz MD ANESTHESIOLOGIST: Dr. Marlow. ANESTHESIA: General. PRE-OP DIAGNOSES: 1. Right hydronephrosis. 2. Calculus, right ureter. POST-OP DIAGNOSES: 1. Right hydronephrosis. 2. Calculus, right ureter. OPERATIVE PROCEDURE: 1. Cystoscopy. 2. Right stent removal. 3. Right retrograde pyelogram. 4. Right ureteroscopy. 5. Laser lithotripsy of calculus, right ureter. 6. Removal of calculus fragments. 7. Right stent insertion. COMPLICATIONS: None. POSTOPERATIVE CONDITION: Stable. STENT USED: 7-Guinean stent, right ureter. INDICATIONS: Delfina Flower is a 73-year-old lady who had been evaluated for urosepsis secondary to an obstructing calculus in the right ureter. She had undergone urgent right stent insertion and then is now being brought in for right ureteroscopy for definitive treatment of the calculus. OPERATIVE FINDINGS: 1. Approximately 7 to 8 mm calculus impacted in junction of right mid to distal ureter. 2. Right hydronephrosis and proximal hydroureter. DESCRIPTION OF PROCEDURE: After induction of general anesthesia, the patient was placed in dorsal lithotomy position. Sequential compression devices were in place and functioning. Initial cystoscopy revealed a normal appearing bladder. The previously placed right stent was removed. Retrograde pyelogram revealed fairly significant right hydronephrosis with dilated tortuous proximal right ureter. This was straightened out over a guidewire and a 6-Guinean semi- rigid ureteroscope was introduced and advanced under direct vision. At the junction of the distal to mid right ureter, a 7 to 8 mm calculus was noted to be impacted with significant surrounding edema and inflammation. This was carefully disengaged from the site of impaction and using a 365 micron holmium laser fiber, the stone was broken up into multiple fragments. All of the fragments were retrieved and sent for analysis. A 7-Guinean stent was introduced and positioned under fluoroscopy with good proximal and distal positioning obtained. The bladder was emptied. The patient tolerated the procedure satisfactorily and was transferred back to the recovery area in stable condition. [id number]/[facility] #: [id number] [facility]
== END 2019-01-13 12:10 | disposition home or self-care (01) ==
LOC: OR 08:45
PROVIDERS: ATTEND Urology
DX: N13.2 Hydronephrosis with renal and ureteral calculous obstruction (principal); E11.9 Type 2 diabetes mellitus without complications; Z87.440 Personal history of urinary (tract) infections; Z79.84 Long term (current) use of oral hypoglycemic drugs; I48.91 Unspecified atrial fibrillation; Z79.01 Long term (current) use of anticoagulants; I10 Essential (primary) hypertension; Z85.3 Personal history of malignant neoplasm of breast; F41.8 Other specified anxiety disorders; R25.1 Tremor, unspecified
CPT/HCPCS: 36415; 74420; 82365; 85014; 85018; 88300; C1876; J0696; J1580; J2405; J2704; J3010

== ENCOUNTER → 2019-06-20 08:54 | Day surgery (SDC) | payer MEDICARE ==
[~2019-06-20 08:54] MED LIST changes: +Acetaminophen TAB* 325 MG PO PRN; +Cyclopentolate 1% OPTH.SOL* 2 ML BTL ONE; -Famotidine IV* 10 MG/ML 2 ML (20 mg) IV ONE; -Famotidine IV* 10 MG/ML 2 ML (20 mg) ONE; -Gentamicin ADULT (*) 160 MG in NS 0.9% 100 ML* 100 ML IVPB ONE; +Ketorolac 0.5% OPHTH (NF) 0.5 % 5 ML BTL ONE; -Lactated Ringers 1000 ML Bag* 1,000 ML IV SCH; +Lidocaine 1% MPF ** 5 ML VIAL ONE; +Midazolam* 1 MG/ML 5 ML VIAL (5 MG) ONE; +Neomycin/Polymy/Dex OPHTH.OIN* 3.5 GM ONE; +Phenylephrine OPHTH SOL 2.5%* 2 ML ONE; +Tetracaine 0.5% OPTH.SOL 4 ML* 1 DROP BTL ONE; +Tropicamide 1% OPTH.SOL* BTL ONE; -cefTRIAXone(*) 2 GM ADDV.VIAL IVPB ONE; +fentaNYL* 50 MCG/ML 2 ML VIAL (100 MCG VIAL) ONE
--- NOTE | 2019-06-20 11:03 | OP ---
DATE OF OPERATION: 06/20/19 [facility] DATE OF : 49 SURGEON: Dr. Marcus Quesada. PARTS ROOM ASSISTANT: None. ANESTHESIA: Topical with intravenous sedation. PRE-OP DIAGNOSIS: Cataract, right eye. POST-OP DIAGNOSIS: Cataract, right eye. OPERATIVE PROCEDURE: Phacoemulsification and cataract extraction with posterior chamber intraocular lens implant, right eye. COMPLICATIONS: None. BLOOD LOSS: None. DESCRIPTION OF PROCEDURE: The patient was brought to the operating room and received a small amount of intravenous sedation. A drop of Tetracaine was placed in her right eye. She was prepped and draped in the usual sterile fashion for ophthalmic surgery and attention was directed to the right eye where a speculum was placed. A paracentesis was created at the 11 o'clock position and 0.1 cc of 1 percent preservative-free Lidocaine was injected into the anterior chamber followed by DisCoVisc. The eye was digitally stabilized while a 2.75 mm keratome was used to create a triplanar clear corneal incision at the 9 o'clock position. A continuous curvilinear capsulorrhexis was created with a cystotome and Utrata forceps. BSS on a cannula was used to hydrodissect the lens from the capsule. Phacoemulsification was performed in a divide-and- conquer technique to create four fragments which were removed. Residual cortical material was removed with irrigation and aspiration. DisCoVisc was used to inflate the capsular bag and an AU00T0 24.0 Diopter lens was folded and inserted into the capsular bag. DisCoVisc was removed using irrigation and aspiration. BSS on a cannula was used to hydrate the corneal stroma and seal the wound. At the end of the case the pupil was round and the lens was centered. The eye was of normal pressure and the wound was water tight. The speculum was removed and topical Maxitrol ointment was placed on the surface of the eye. The eye was closed, patched and shielded and the patient was sent to the recovery room in stable condition with post operative instructions and follow-up appointment given. [id number]/[facility] #: [id number] LISA
[2019-06-20 13:44] VITALS: BP 147/67
== END | disposition home or self-care (01) ==
LOC: OREAST 08:54
PROVIDERS: ATTEND Ophthalmology
DX: H25.11 Age-related nuclear cataract, right eye (principal); E11.9 Type 2 diabetes mellitus without complications; Z79.84 Long term (current) use of oral hypoglycemic drugs; I10 Essential (primary) hypertension; Z85.3 Personal history of malignant neoplasm of breast; I48.91 Unspecified atrial fibrillation; Z87.11 Personal history of peptic ulcer disease; F41.8 Other specified anxiety disorders; R25.1 Tremor, unspecified
CPT/HCPCS: A9270-GY; J2250; J3010; V2632

== ENCOUNTER 2019-06-27 08:19 | Day surgery (SDC) | payer MEDICARE ==
[~2019-06-27 08:19] MED LIST changes: -Cyclopentolate 1% OPTH.SOL* 2 ML BTL ONE; -Ketorolac 0.5% OPHTH (NF) 0.5 % 5 ML BTL ONE; -Lidocaine 1% MPF ** 5 ML VIAL ONE; -Midazolam* 1 MG/ML 5 ML VIAL (5 MG) ONE; -Neomycin/Polymy/Dex OPHTH.OIN* 3.5 GM ONE; -Phenylephrine OPHTH SOL 2.5%* 2 ML ONE; -Tetracaine 0.5% OPTH.SOL 4 ML* 1 DROP BTL ONE; -Tropicamide 1% OPTH.SOL* BTL ONE; -fentaNYL* 50 MCG/ML 2 ML VIAL (100 MCG VIAL) ONE
[2019-06-27] MEDS ORDERED: Midazolam* 1 MG/ML 2 ML VIAL (2 MG) ONE ×2 (09:02→09:22)
[2019-06-27] MEDS ORDERED: fentaNYL* 50 MCG/ML 2 ML VIAL (100 MCG VIAL) ONE (09:02)
[2019-06-27] MEDS ORDERED: Phenylephrine OPHTH SOL 2.5%* 2 ML ONE (09:09)
[2019-06-27] MEDS ORDERED: Ketorolac 0.5% OPHTH (NF) 0.5 % 5 ML BTL ONE (09:09)
[2019-06-27] MEDS ORDERED: Cyclopentolate 1% OPTH.SOL* 2 ML BTL ONE (09:09)
[2019-06-27] MEDS ORDERED: Lidocaine 1% MPF ** 5 ML VIAL ONE (09:09)
[2019-06-27] MEDS ORDERED: Tropicamide 1% OPTH.SOL* BTL ONE (09:09)
[2019-06-27] MEDS ORDERED: Neomycin/Polymy/Dex OPHTH.OIN* 3.5 GM ONE (09:09)
[2019-06-27] MEDS ORDERED: Tetracaine 0.5% OPTH.SOL 4 ML* 1 DROP BTL ONE (09:09)
--- NOTE | 2019-06-27 11:43 | OP ---
DATE OF OPERATION/DATE OF DICTATION: 06/27/2019 - [facility] DATE OF : 1945. SURGEON: Dr. Marcus Quesada. ATTENDANT LODGING FACILITIES: None. ANESTHESIA: Topical with intravenous sedation. PRE-OP DIAGNOSIS: Cataract, left eye. POST-OP DIAGNOSIS: Cataract, left eye. OPERATIVE PROCEDURE: Phacoemulsification and cataract extraction with posterior chamber intraocular lens implant, left eye. COMPLICATIONS: None. BLOOD LOSS: None. DESCRIPTION OF PROCEDURE: The patient was brought to the operating room and received a small amount of intravenous sedation. A drop of Tetracaine was placed in her left eye. She was prepped and draped in the usual sterile fashion for ophthalmic surgery and attention was directed to the left eye where a speculum was placed. A paracentesis was created at the 5 o'clock position and 0.1 cc of 1 percent preservative-free Lidocaine was injected into the anterior chamber followed by DisCoVisc. The eye was digitally stabilized while a 2.75 mm keratome was used to create a triplanar clear corneal incision at the 3 o'clock position. A continuous curvilinear capsulorrhexis was created with a cystotome and Utrata forceps. BSS on a cannula was used to hydrodissect the lens from the capsule. Phacoemulsification was performed in a divide-and- conquer technique to create four fragments which were removed. Residual cortical material was removed with irrigation and aspiration. DisCoVisc was used to inflate the capsular bag and an AUOOTO 24.5 diopter lens was folded and inserted into the capsular bag. DisCoVisc was removed using irrigation and aspiration. BSS on a cannula was used to hydrate the corneal stroma and seal the wound. At the end of the case the pupil was round and the lens was centered. The eye was of normal pressure and the wound was water tight. The speculum was removed and topical Maxitrol ointment was placed on the surface of the eye. The eye was closed, patched and shielded and the patient was sent to the recovery room in stable condition with post operative instructions and follow-up appointment given. [id number]/[facility] #: [id number] MTDD
[2019-06-27 12:42] VITALS: BP 146/63
== END 2019-06-27 10:06 | disposition home or self-care (01) ==
LOC: OREAST 08:19
PROVIDERS: ATTEND Ophthalmology
DX: H25.12 Age-related nuclear cataract, left eye (principal); I10 Essential (primary) hypertension; E11.9 Type 2 diabetes mellitus without complications; Z79.84 Long term (current) use of oral hypoglycemic drugs; Z85.3 Personal history of malignant neoplasm of breast
CPT/HCPCS: A9270-GY; J2250; J3010; V2632

== ENCOUNTER 2020-09-19 04:04 | Inpatient (IN) ==
[2020-09-19 05:13] LABS: ABS Eosinophils 0.2 10^3/ul (0-0.6); ABS Lymphocytes 1.7 10^3/ul (1.0-4.8); ABS Monocytes 0.6 10^3/ul (0-0.8); Eosinophil % 1.4 %; Hematocrit 36 % (35-47); Hemoglobin 11.8 g/dL (12.0-16.0); Lymphocyte % 14.9 %; Mean Corpuscular HGB Conc 33 g/dL (31-36); Mean Corpuscular Hemoglobin 29 pg (27-31); Mean Corpuscular Volume 89 fL (80-97); Platelet Count 298 10^3/uL (150-450); Red Blood Count 4.04 10^6 /uL (3.70-4.87); Red Cell Distribution Width 14 % (10-15); White Blood Count 11.6 10^3/uL (3.5-10.8)
[2020-09-19 05:41] LABS: Albumin 4.3 g/dL (3.2-5.2); Anion Gap 10 mmol/L (2-11); CO2 Carbon Dioxide 19 mmol/L (22-32); Calcium 8.8 mg/dL (8.6-10.3); Chloride 106 mmol/L (101-111); Potassium 3.6 mmol/L (3.5-5.0); Sodium 135 mmol/L (135-145)
[2020-09-19 05:47] LABS: ALT 50 U/L (7-52); AST 56 U/L (13-39); Albumin/Globulin Ratio 1.7 (1-3); Alkaline Phosphatase 62 U/L (34-104); BUN/Creatinine Ratio 32.5 (8-20); Blood Urea Nitrogen 26 mg/dL (6-24); EGFR African American 85.1 (>60); EGFR Non-African American 70.3 (>60); Globulin 2.5 g/dL (2-4); Glucose 237 mg/dL (70-100); Total Protein 6.8 g/dL (6.4-8.9)
[2020-09-19] MEDS ORDERED: Furosemide 40 mg/4 ml IV VIAL IV SLOW PU ONE (05:47)
[2020-09-19] MEDS ORDERED: Dextrose 50% Syringe 50 ml 25 GM/50 ML SYRINGE IV PUSH PRN (08:55)
[2020-09-19] MEDS ORDERED: Heparin 5000 UNITS/ML 1 mL VIAL SUBCUT SCH (09:00)
[2020-09-19] MEDS: Enoxaparin 80 MG/0.8 ML SYR SUBCUT SCH ×2 (10:57→21:58)
[2020-09-19] MEDS ORDERED: Potassium Chloride LIQUID 20 MEQ/15 ML LIQUID PO ONE (11:14)
[2020-09-19] MEDS ORDERED: Nitroglycerin 0.2 mg/hr PATCH (5 mg) TRANSDERM SCH (12:00)
[2020-09-19 12:03] LABS: Ferritin 14.5 ng/mL (11-307); Total Iron Binding Capacity 476 mcg/dL (250-450); Transferrin 340 mg/dL (203-362)
[2020-09-19 12:36] LABS: Cholesterol 163 mg/dL; Creatine Kinase 58 U/L (10-223); HDL Cholesterol 53.9 mg/dL; LDL Cholesterol 91 mg/dL; Triglycerides 89 mg/dL
[2020-09-19] MEDS ORDERED: Nitro Patch/OINT Remove PATCH PATCH OFF SCH (21:00)
[2020-09-20 06:19] LABS: ABS Basophils 0.1 10^3/ul (0-0.2); ABS Eosinophils 0.2 10^3/ul (0-0.6); ABS Lymphocytes 3.2 10^3/ul (1.0-4.8); ABS Monocytes 0.8 10^3/ul (0-0.8); ABS Neutrophils 3.2 10^3/ul (1.5-7.7); Eosinophil % 2.1 %; Hematocrit 31 % (35-47); Hemoglobin 10.5 g/dL (12.0-16.0); Lymphocyte % 43.5 %; Mean Corpuscular HGB Conc 34 g/dL (31-36); Mean Corpuscular Hemoglobin 30 pg (27-31); Mean Corpuscular Volume 87 fL (80-97); Mean Platelet Volume 8.1 fL (7.4-10.4); Platelet Count 263 10^3/uL (150-450); Red Blood Count 3.54 10^6 /uL (3.70-4.87); Red Cell Distribution Width 14 % (10-15); White Blood Count 7.3 10^3/uL (3.5-10.8)
[2020-09-20 06:50] LABS: % Iron Saturation 16 % (15-55); Albumin 3.6 g/dL (3.2-5.2); Albumin/Globulin Ratio 1.4 (1-3); BUN/Creatinine Ratio 27.3 (8-20); Calcium 8.5 mg/dL (8.6-10.3); EGFR African American 66.5 (>60); Globulin 2.5 g/dL (2-4); HDL Cholesterol 45.2 mg/dL; Iron 68 ug/dL (50-212); Potassium 4.1 mmol/L (3.5-5.0); Total Bilirubin 0.7 mg/dL (0.2-1.0); Total Iron Binding Capacity 419 mcg/dL (250-450); Total Protein 6.1 g/dL (6.4-8.9); Transferrin 299 mg/dL (203-362); Unsaturated Iron Binding < 404 ug/dL
[2020-09-20 06:52] LABS: Troponin I 0.01 ng/mL (<0.03)
[2020-09-20 07:05] LABS: TSH Ultra Thyroid Stim Horm 1.71 mcIU/mL (0.34-5.60)
[2020-09-20] MEDS: Nitro Patch/OINT Remove PATCH PATCH OFF SCH (08:20)
[2020-09-20] MEDS: Enoxaparin 80 MG/0.8 ML SYR SUBCUT SCH ×2 (10:13→23:06)
[2020-09-20] MEDS: Nystatin TOP POWDER 15 GM BTL TOPICAL SCH ×2 (12:40→22:59)
[2020-09-20] MEDS ORDERED: Flumazenil 0.5 mg/5 ml 0.1 MG/ML 5 ml VIAL ONE (12:56)
[2020-09-20] MEDS ORDERED: Naloxone 0.4 mg VIAL 0.4 mg/ml 1 ml VIAL ONE (12:56)
[2020-09-20] MEDS ORDERED: Midazolam 5 mg/5 ml VIAL 1 mg/ml 5 ml VIAL (5 mg) ONE (12:56)
[2020-09-20] MEDS ORDERED: fentaNYL 100 mcg/2 ml 50 MCG/ML VIAL ONE (12:56)
[2020-09-20] MEDS ORDERED: Furosemide 20 mg/2 ml IV VIAL IV SLOW PU ONE (13:02)
[2020-09-20 13:08] LABS: Urine Appearance Cloudy; Urine Bilirubin Negative (Negative); Urine Blood Negative (Negative); Urine Color Yellow; Urine Glucose Negative (Negative); Urine Ketones Negative (Negative); Urine Nitrite Negative (Negative); Urine Protein Negative (Negative); Urine Urobilinogen Negative (Negative)
[2020-09-20 13:21] LABS: Urine Bacteria 1+ (Absent); Urine Red Blood Cell 2+(6-10/hpf) (Absent); Urine Squamous Epithelial Cell Present (Absent); Urine White Blood Cell 3+(>20/hpf) (Absent)
[2020-09-20] MEDS: Nitroglycerin 0.2 mg/hr PATCH (5 mg) TRANSDERM SCH (20:54)
[2020-09-21 05:18] LABS: ABS Basophils 0.1 10^3/ul (0-0.2); ABS Eosinophils 0.2 10^3/ul (0-0.6); ABS Lymphocytes 2.7 10^3/ul (1.0-4.8); ABS Monocytes 0.7 10^3/ul (0-0.8); Eosinophil % 2.7 %; Hematocrit 32 % (35-47); Hemoglobin 10.8 g/dL (12.0-16.0); Mean Corpuscular HGB Conc 34 g/dL (31-36); Mean Corpuscular Hemoglobin 30 pg (27-31); Mean Corpuscular Volume 87 fL (80-97); Mean Platelet Volume 8.5 fL (7.4-10.4); Nucleated Red Blood Cells % 0.1; Platelet Count 249 10^3/uL (150-450); Red Blood Count 3.65 10^6 /uL (3.70-4.87); Red Cell Distribution Width 14 % (10-15); White Blood Count 6.7 10^3/uL (3.5-10.8)
[2020-09-21 05:37] LABS: EGFR African American 80.4 (>60); EGFR Non-African American 66.5 (>60); Potassium 3.9 mmol/L (3.5-5.0)
[2020-09-21] MEDS: Nitro Patch/OINT Remove PATCH PATCH OFF SCH (08:26)
[2020-09-21] MEDS: Enoxaparin 80 MG/0.8 ML SYR SUBCUT SCH (08:26)
[2020-09-21] MEDS: Nystatin TOP POWDER 15 GM BTL TOPICAL SCH ×2 (08:30→20:45)
[2020-09-21] MEDS: Iron Sucrose 200 MG in NS 0.9% 100 ml BAG 100 ML IVPB SCH (11:57)
[2020-09-21] MEDS ORDERED: Potassium Chloride LIQUID 20 MEQ/15 ML LIQUID PO ONE (16:06)
[2020-09-21] MEDS: Nitroglycerin 0.2 mg/hr PATCH (5 mg) TRANSDERM SCH (20:38)
[2020-09-22] MEDS ORDERED: Furosemide 40 mg/4 ml IV VIAL IV SLOW PU ONE (00:39)
[2020-09-22 05:29] LABS: ABS Eosinophils 0.1 10^3/ul (0-0.6); ABS Lymphocytes 1.6 10^3/ul (1.0-4.8); ABS Monocytes 0.6 10^3/ul (0-0.8); ABS Neutrophils 6.6 10^3/ul (1.5-7.7); Eosinophil % 0.6 %; Hematocrit 34 % (35-47); Hemoglobin 11.4 g/dL (12.0-16.0); Lymphocyte % 18.4 %; Mean Corpuscular HGB Conc 34 g/dL (31-36); Mean Corpuscular Hemoglobin 29 pg (27-31); Mean Corpuscular Volume 87 fL (80-97); Mean Platelet Volume 8.3 fL (7.4-10.4); Platelet Count 276 10^3/uL (150-450); Red Blood Count 3.87 10^6 /uL (3.70-4.87); Red Cell Distribution Width 14 % (10-15)
[2020-09-22 05:40] LABS: BUN/Creatinine Ratio 22.9 (8-20); Calcium 9.1 mg/dL (8.6-10.3); EGFR African American 68.9 (>60); Potassium 4.3 mmol/L (3.5-5.0)
[2020-09-22] MEDS: Iron Sucrose 200 MG in NS 0.9% 100 ml BAG 100 ML IVPB SCH (09:58)
[2020-09-22] MEDS: Nitro Patch/OINT Remove PATCH PATCH OFF SCH (10:00)
[2020-09-22] MEDS: Nystatin TOP POWDER 15 GM BTL TOPICAL SCH ×2 (10:00→20:49)
[2020-09-22 12:11] LABS: Magnesium 1.5 mg/dL (1.9-2.7)
[2020-09-22 12:35] LABS: Vitamin D Total 25(OH) 27.8 ng/mL (20-50)
[2020-09-22] MEDS ORDERED: Magnesium Sulfate IV 3 GM in NS 0.9% 100 ml BAG 100 ML IVPB ONE (13:08)
[2020-09-22] MEDS ORDERED: Nitroglycerin 0.3 mg/hr PATCH (7.5 mg) TRANSDERM SCH (13:30)
[2020-09-22 13:43] LABS: Troponin I 0.01 ng/mL (<0.03)
[2020-09-22] MEDS: Nitroglycerin 0.1 mg/hr PATCH (2.5 mg) TRANSDERM SCH ×2 (14:33→20:46)
[2020-09-22 15:32] LABS: Activated Partial Thrombo Time 38.1 seconds (26.0-38.0); INR 1.23 (0.82-1.09)
[2020-09-22] MEDS ORDERED: Heparin 5000 UNITS/ML 1 mL VIAL IV SCH (21:00)
[2020-09-22] MEDS ORDERED: Nitroglycerin 0.2 mg/hr PATCH (5 mg) TRANSDERM SCH (21:00)
[2020-09-22] MEDS ORDERED: Heparin DRIP 25,000 UNITS BAG 25,000 UNITS/500 ML BAG IV SCH (21:00)
[2020-09-23 07:56] LABS: ABS Eosinophils 0.1 10^3/ul (0-0.6); ABS Lymphocytes 1.7 10^3/ul (1.0-4.8); ABS Monocytes 1.1 10^3/ul (0-0.8); ABS Neutrophils 7.1 10^3/ul (1.5-7.7); Eosinophil % 1.4 %; Hematocrit 33 % (35-47); Hemoglobin 11.1 g/dL (12.0-16.0); Mean Corpuscular HGB Conc 34 g/dL (31-36); Mean Corpuscular Hemoglobin 29 pg (27-31); Mean Corpuscular Volume 88 fL (80-97); Mean Platelet Volume 7.8 fL (7.4-10.4); Platelet Count 258 10^3/uL (150-450); Red Blood Count 3.77 10^6 /uL (3.70-4.87); Red Cell Distribution Width 14 % (10-15); White Blood Count 10.1 10^3/uL (3.5-10.8)
[2020-09-23 08:12] LABS: BUN/Creatinine Ratio 22.2 (8-20); Calcium 8.7 mg/dL (8.6-10.3); EGFR African American 74.3 (>60); EGFR Non-African American 61.4 (>60); Magnesium 1.8 mg/dL (1.9-2.7); Potassium 4.2 mmol/L (3.5-5.0)
[2020-09-23] MEDS: Nitroglycerin 0.1 mg/hr PATCH (2.5 mg) TRANSDERM SCH (08:31)
[2020-09-23] MEDS ORDERED: Heparin 1,000 UNIT/ML 10 ml (10,000 UNITS) CATHLAB/DIALYSIS ONE (08:37)
[2020-09-23] MEDS ORDERED: Midazolam 5 mg/5 ml VIAL 1 mg/ml 5 ml VIAL (5 mg) ONE (08:37)
[2020-09-23] MEDS ORDERED: Heparin 2 UNITS/ML 1000 mls 2,000 ML IV ONE (08:37)
[2020-09-23] MEDS ORDERED: VERAPAMIL 2.5 MG/ML 2 ML VIAL ** 5 mg/2 ml ONE (08:37)
[2020-09-23] MEDS ORDERED: fentaNYL 100 mcg/2 ml 50 MCG/ML VIAL ONE (08:37)
[2020-09-23] MEDS ORDERED: Lidocaine 1% VIAL 10 MG/ML VIAL ONE (08:38)
[2020-09-23] MEDS ORDERED: Iohexol 350 (CONTRAST) 200 ML MDV IV ONE (08:38)
[2020-09-23] MEDS ORDERED: nitroGLYCERIN DRIP 25,000 MCG/250 ML BTL ONE (08:38)
[2020-09-23] MEDS: Nystatin TOP POWDER 15 GM BTL TOPICAL SCH ×2 (10:11→19:49)
[2020-09-23] MEDS: Iron Sucrose 200 MG in NS 0.9% 100 ml BAG 100 ML IVPB SCH ×2 (10:11→12:10)
[2020-09-23] MEDS ORDERED: NS 0.9% 1000 ml BAG 1,000 ML IV SCH (11:15)
[2020-09-23 11:36] LABS: POC SO2 93 %
[2020-09-23 11:36] LABS: POC SO2 61 %
[2020-09-23 11:36] LABS: POC SO2 61 %
[2020-09-23] MEDS ORDERED: Magnesium Sulfate 2 gm BAG 2 GM/50 ML BAG IVPB ONE (12:42)
[2020-09-24 06:49] LABS: ABS Basophils 0.1 10^3/ul (0-0.2); ABS Eosinophils 0.2 10^3/ul (0-0.6); ABS Lymphocytes 2.1 10^3/ul (1.0-4.8); ABS Monocytes 0.9 10^3/ul (0-0.8); ABS Neutrophils 4.6 10^3/ul (1.5-7.7); Eosinophil % 2.9 %; Hematocrit 33 % (35-47); Lymphocyte % 27.1 %; Mean Corpuscular HGB Conc 34 g/dL (31-36); Mean Corpuscular Hemoglobin 30 pg (27-31); Mean Corpuscular Volume 88 fL (80-97); Mean Platelet Volume 8.5 fL (7.4-10.4); Platelet Count 234 10^3/uL (150-450); Red Blood Count 3.73 10^6 /uL (3.70-4.87); Red Cell Distribution Width 14 % (10-15); White Blood Count 7.8 10^3/uL (3.5-10.8)
[2020-09-24 07:02] LABS: Calcium 8.6 mg/dL (8.6-10.3); Magnesium 1.9 mg/dL (1.9-2.7); Potassium 4.1 mmol/L (3.5-5.0)
[2020-09-24 07:07] LABS: BUN/Creatinine Ratio 19.8 (8-20); EGFR African American 73.3 (>60); EGFR Non-African American 60.6 (>60)
[2020-09-24] MEDS: Iron Sucrose 200 MG in NS 0.9% 100 ml BAG 100 ML IVPB SCH (09:01)
[2020-09-24] MEDS: Nystatin TOP POWDER 15 GM BTL TOPICAL SCH (10:20)
[2020-09-24 11:20] VITALS: BP 144/65
== END 2020-09-24 14:20 | disposition home or self-care (01) | DRG 287 ==
LOC: MED 04:04 → ED 04:04 → OBSVTOIN 08:57 → MEDTELE 09-20 00:28
PROVIDERS: ADMIT Student in an Organized Health Care Education/Training Program; ATTEND Hospitalist

== ENCOUNTER 2020-12-10 08:25 | Inpatient (IN) ==
[2020-12-10] MEDS ORDERED: Senna TAB 8.6 mg TAB PO PRN (15:43)
[2020-12-10] MEDS ORDERED: Magnesium Hydroxide LIQ 30 ML UDC PO PRN (15:43)
[2020-12-11] MEDS: Cholecalciferol (VIT D3) 1,000 unit TAB PO SCH (08:23)
[2020-12-11] MEDS: Aspirin EC 81 mg TAB.EC (enteric coated) PO SCH (08:23)
[2020-12-11] MEDS: CMCS: OMEGA-3 FATTY ACID 1000 mg(NF) PO SCH (08:24)
[2020-12-11 09:26] LABS: Hematocrit 30 % (35-47); Hemoglobin 10.2 g/dL (12.0-16.0); Mean Corpuscular HGB Conc 34 g/dL (31-36); Mean Corpuscular Hemoglobin 31 pg (27-31); Mean Corpuscular Volume 90 fL (80-97); Mean Platelet Volume 8.1 fL (7.4-10.4); Platelet Count 325 10^3/uL (150-450); Red Blood Count 3.31 10^6 /uL (3.70-4.87); Red Cell Distribution Width 15 % (10-15); White Blood Count 10.4 10^3/uL (3.5-10.8)
[2020-12-11 09:28] LABS: ABS Eosinophils 0.1 10^3/ul (0-0.6); ABS Lymphocytes 1.3 10^3/ul (1.0-4.8); ABS Neutrophils 7.9 10^3/ul (1.5-7.7); Eosinophil % 1.3 %; Lymphocyte % 12.9 %
[2020-12-11 09:33] LABS: INR 2.13 (0.82-1.09)
[2020-12-11 09:42] LABS: Albumin/Globulin Ratio 1.1 (1-3); BUN/Creatinine Ratio 17.9 (8-20); Calcium 8.1 mg/dL (8.6-10.3); EGFR African American 57.7 (>60); EGFR Non-African American 47.7 (>60); Globulin 2.7 g/dL (2-4); Potassium 4.2 mmol/L (3.5-5.0); Total Bilirubin 0.8 mg/dL (0.2-1.0); Total Protein 5.7 g/dL (6.4-8.9)
[2020-12-11] MEDS ORDERED: Dextrose 50% Syringe 50 ml 25 GM/50 ML SYRINGE IV PUSH PRN (18:47)
[2020-12-12 07:24] LABS: INR 2.4 (0.82-1.09)
[2020-12-12] MEDS: Cholecalciferol (VIT D3) 1,000 unit TAB PO SCH (08:26)
[2020-12-12] MEDS: Aspirin EC 81 mg TAB.EC (enteric coated) PO SCH (08:26)
[2020-12-12] MEDS: CMCS: OMEGA-3 FATTY ACID 1000 mg(NF) PO SCH (08:27)
[2020-12-13 06:31] LABS: INR 2.36 (0.82-1.09)
[2020-12-13] MEDS: Aspirin EC 81 mg TAB.EC (enteric coated) PO SCH (08:44)
[2020-12-13] MEDS: Cholecalciferol (VIT D3) 1,000 unit TAB PO SCH (08:44)
[2020-12-13] MEDS: CMCS: OMEGA-3 FATTY ACID 1000 mg(NF) PO SCH (08:46)
[2020-12-14] MEDS: Aspirin EC 81 mg TAB.EC (enteric coated) PO SCH (09:15)
[2020-12-14] MEDS: Cholecalciferol (VIT D3) 1,000 unit TAB PO SCH (09:16)
[2020-12-14] MEDS: CMCS: OMEGA-3 FATTY ACID 1000 mg(NF) PO SCH (09:20)
[2020-12-14] MEDS: diPHENhydraMINE 25 mg TAB PO PRN (19:31)
[2020-12-15] MEDS: Aspirin EC 81 mg TAB.EC (enteric coated) PO SCH (09:58)
[2020-12-15] MEDS: Cholecalciferol (VIT D3) 1,000 unit TAB PO SCH (09:58)
[2020-12-15] MEDS: CMCS: OMEGA-3 FATTY ACID 1000 mg(NF) PO SCH (10:00)
[2020-12-15] MEDS: diPHENhydraMINE 25 mg TAB PO PRN (21:00)
[2020-12-16 06:29] LABS: INR 2.74 (0.82-1.09)
[2020-12-16] MEDS: Aspirin EC 81 mg TAB.EC (enteric coated) PO SCH (09:49)
[2020-12-16] MEDS: Cholecalciferol (VIT D3) 1,000 unit TAB PO SCH (09:49)
[2020-12-16] MEDS: CMCS: OMEGA-3 FATTY ACID 1000 mg(NF) PO SCH (09:50)
[2020-12-16] MEDS: diPHENhydraMINE 25 mg TAB PO PRN (21:07)
[2020-12-17 05:43] VITALS: BP 143/80
[2020-12-17 05:47] LABS: INR 2.59 (0.82-1.09)
[2020-12-17] MEDS: Aspirin EC 81 mg TAB.EC (enteric coated) PO SCH (08:33)
[2020-12-17] MEDS: Cholecalciferol (VIT D3) 1,000 unit TAB PO SCH (08:33)
[2020-12-17] MEDS: CMCS: OMEGA-3 FATTY ACID 1000 mg(NF) PO SCH (08:36)
== END 2020-12-17 14:30 | disposition home health service (06) | DRG 950 ==
LOC: PMRU 14:23
PROVIDERS: ADMIT Physical Medicine & Rehabilitation; ATTEND Physical Medicine & Rehabilitation

== ENCOUNTER 2021-02-07 02:48 | Inpatient (IN) ==
[2021-02-07 03:15] LABS: ABS Basophils 0.1 10^3/ul (0-0.2); ABS Eosinophils 0.2 10^3/ul (0-0.6); ABS Lymphocytes 2.1 10^3/ul (1.0-4.8); ABS Monocytes 0.8 10^3/ul (0-0.8); ABS Neutrophils 6.5 10^3/ul (1.5-7.7); Eosinophil % 1.7 %; Hematocrit 25 % (35-47); Hemoglobin 8.5 g/dL (12.0-16.0); Lymphocyte % 21.4 %; Mean Corpuscular HGB Conc 34 g/dL (31-36); Mean Corpuscular Hemoglobin 31 pg (27-31); Mean Corpuscular Volume 91 fL (80-97); Mean Platelet Volume 7.7 fL (7.4-10.4); Platelet Count 342 10^3/uL (150-450); Red Blood Count 2.75 10^6 /uL (3.70-4.87); Red Cell Distribution Width 16 % (10-15); White Blood Count 9.7 10^3/uL (3.5-10.8)
[2021-02-07 03:27] LABS: Activated Partial Thrombo Time 31.6 seconds (26.0-38.0); INR 1.68 (0.82-1.09)
[2021-02-07 03:35] LABS: Anion Gap 13 mmol/L (2-11); CO2 Carbon Dioxide 21 mmol/L (22-32); Calcium 8.8 mg/dL (8.6-10.3); Chloride 98 mmol/L (101-111); Magnesium 1.3 mg/dL (1.9-2.7); Potassium 3.9 mmol/L (3.5-5.0); Sodium 132 mmol/L (135-145)
[2021-02-07 03:38] LABS: CKMB ng/mL 3.7 ng/mL (0.6-6.3)
[2021-02-07 03:41] LABS: ALT 32 U/L (7-52); AST 51 U/L (13-39); Albumin/Globulin Ratio 1.4 (1-3); Alkaline Phosphatase 101 U/L (35-149); Blood Urea Nitrogen 29 mg/dL (6-24); Creatine Kinase 59 U/L (10-223); EGFR African American 43.2 (>60); EGFR Non-African American 35.7 (>60); Globulin 2.8 g/dL (2-4); Glucose 330 mg/dL (70-100); Total Protein 6.8 g/dL (6.4-8.9)
[2021-02-07 03:44] LABS: Urine Appearance Cloudy; Urine Bilirubin Negative (Negative); Urine Blood Negative (Negative); Urine Color Yellow; Urine Glucose 3+(>=500 mg/dL) (Negative); Urine Ketones Negative (Negative); Urine Nitrite Negative (Negative); Urine Protein Negative (Negative); Urine Specific Gravity 1.013 (1.002-1.030); Urine Urobilinogen Negative (Negative)
[2021-02-07 03:45] LABS: Troponin I 0.05 ng/mL (<0.03)
[2021-02-07 03:46] LABS: Urine Bacteria Absent (Absent); Urine Red Blood Cell Absent (Absent); Urine Squamous Epithelial Cell Present (Absent); Urine White Blood Cell 3+(>20/hpf) (Absent)
[2021-02-07 03:59] LABS: TSH Ultra Thyroid Stim Horm 6.05 mcIU/mL (0.34-5.60)
[2021-02-07] MEDS ORDERED: Furosemide 40 mg/4 ml IV VIAL IV SLOW PU ONE (04:30)
[2021-02-07] MEDS ORDERED: Magnesium Sulfate 2 gm BAG 2 GM/50 ML BAG IVPB ONE ×2 (05:43→13:31)
[2021-02-07 06:41] LABS: Troponin I 0.44 ng/mL (<0.03)
[2021-02-07] MEDS ORDERED: Dextrose 50% Syringe 50 ml 25 GM/50 ML SYRINGE IV PUSH PRN (08:35)
[2021-02-07 09:12] LABS: Troponin I 0.67 ng/mL (<0.03)
[2021-02-07] MEDS: Aspirin EC 81 mg TAB.EC (enteric coated) PO SCH (09:43)
[2021-02-07 11:12] LABS: Hematocrit 25 % (35-47); Hemoglobin 8.5 g/dL (12.0-16.0); Mean Corpuscular HGB Conc 34 g/dL (31-36); Mean Corpuscular Hemoglobin 30 pg (27-31); Mean Corpuscular Volume 90 fL (80-97); Mean Platelet Volume 7.9 fL (7.4-10.4); Platelet Count 319 10^3/uL (150-450); Red Cell Distribution Width 16 % (10-15); White Blood Count 8.4 10^3/uL (3.5-10.8)
[2021-02-07] MEDS ORDERED: Furosemide 40 mg/4 ml IV VIAL IV SCH (12:00)
[2021-02-07] MEDS ORDERED: Furosemide 40 mg/4 ml IV VIAL IV ONE (16:00)
[2021-02-08 08:10] LABS: Hematocrit 23 % (35-47); Hemoglobin 7.8 g/dL (12.0-16.0); Mean Corpuscular HGB Conc 34 g/dL (31-36); Mean Corpuscular Hemoglobin 30 pg (27-31); Mean Corpuscular Volume 89 fL (80-97); Mean Platelet Volume 8.1 fL (7.4-10.4); Platelet Count 279 10^3/uL (150-450); Red Blood Count 2.58 10^6 /uL (3.70-4.87); Red Cell Distribution Width 15 % (10-15); White Blood Count 4.6 10^3/uL (3.5-10.8)
[2021-02-08 08:18] LABS: INR 2.37 (0.82-1.09)
[2021-02-08 09:16] LABS: Anion Gap 8 mmol/L (2-11); Blood Urea Nitrogen 26 mg/dL (6-24); CO2 Carbon Dioxide 30 mmol/L (22-32); Calcium 8.7 mg/dL (8.6-10.3); Chloride 98 mmol/L (101-111); EGFR African American 45.7 (>60); EGFR Non-African American 37.8 (>60); Glucose 187 mg/dL (70-100); Potassium 3.4 mmol/L (3.5-5.0); Sodium 136 mmol/L (135-145)
[2021-02-08] MEDS: Aspirin EC 81 mg TAB.EC (enteric coated) PO SCH (09:18)
[2021-02-08] MEDS ORDERED: Potassium Chlor 20 meq TAB.ER PO ONE (09:26)
[2021-02-08 14:27] LABS: Ferritin 442.5 ng/mL (11-307)
[2021-02-08 15:32] LABS: % Iron Saturation 19 % (15-55); Iron 49 ug/dL (50-212); Total Iron Binding Capacity 253 mcg/dL (250-450); Transferrin 181 mg/dL (203-362); Unsaturated Iron Binding < 238 ug/dL
[2021-02-08 15:41] LABS: Troponin I 0.67 ng/mL (<0.03)
[2021-02-08 15:58] LABS: Hematocrit 25 % (35-47); Hemoglobin 8.5 g/dL (12.0-16.0)
[2021-02-09] MEDS: Aspirin EC 81 mg TAB.EC (enteric coated) PO SCH (09:08)
[2021-02-09 11:54] LABS: ABS Basophils 0.1 10^3/ul (0-0.2); ABS Eosinophils 0.1 10^3/ul (0-0.6); ABS Lymphocytes 1.8 10^3/ul (1.0-4.8); ABS Monocytes 0.8 10^3/ul (0-0.8); ABS Neutrophils 2.7 10^3/ul (1.5-7.7); Eosinophil % 2.4 %; Hematocrit 24 % (35-47); Hemoglobin 8.3 g/dL (12.0-16.0); Lymphocyte % 33.6 %; Mean Corpuscular HGB Conc 34 g/dL (31-36); Mean Corpuscular Hemoglobin 31 pg (27-31); Mean Corpuscular Volume 90 fL (80-97); Mean Platelet Volume 7.6 fL (7.4-10.4); Nucleated Red Blood Cells % 0.1; Platelet Count 323 10^3/uL (150-450); Red Blood Count 2.68 10^6 /uL (3.70-4.87); Red Cell Distribution Width 16 % (10-15); White Blood Count 5.4 10^3/uL (3.5-10.8)
[2021-02-09 12:05] LABS: INR 1.65 (0.82-1.09)
[2021-02-09 12:14] LABS: Anion Gap 7 mmol/L (2-11); Blood Urea Nitrogen 29 mg/dL (6-24); CO2 Carbon Dioxide 26 mmol/L (22-32); Calcium 8.9 mg/dL (8.6-10.3); Chloride 98 mmol/L (101-111); EGFR African American 46.9 (>60); EGFR Non-African American 38.8 (>60); Glucose 216 mg/dL (70-100); Magnesium 1.7 mg/dL (1.9-2.7); Potassium 4.1 mmol/L (3.5-5.0); Sodium 131 mmol/L (135-145)
[2021-02-09 12:20] LABS: Troponin I 0.35 ng/mL (<0.03)
[2021-02-10 06:08] LABS: Hematocrit 25 % (35-47); Hemoglobin 8.3 g/dL (12.0-16.0); Mean Corpuscular HGB Conc 34 g/dL (31-36); Mean Corpuscular Hemoglobin 31 pg (27-31); Mean Corpuscular Volume 91 fL (80-97); Mean Platelet Volume 7.8 fL (7.4-10.4); Platelet Count 324 10^3/uL (150-450); Red Blood Count 2.71 10^6 /uL (3.70-4.87); Red Cell Distribution Width 16 % (10-15); White Blood Count 5.2 10^3/uL (3.5-10.8)
[2021-02-10 06:26] LABS: Calcium 8.9 mg/dL (8.6-10.3); EGFR African American 41.8 (>60); EGFR Non-African American 34.6 (>60); Magnesium 1.7 mg/dL (1.9-2.7); Potassium 4.3 mmol/L (3.5-5.0)
[2021-02-10] MEDS: Aspirin EC 81 mg TAB.EC (enteric coated) PO SCH (08:08)
[2021-02-10] MEDS ORDERED: Magnesium Sulfate 2 gm BAG 2 GM/50 ML BAG IVPB ONE (09:00)
[2021-02-10 16:03] VITALS: BP 156/91
== END 2021-02-10 16:10 | disposition home or self-care (01) ==
LOC: ED 02:48 → MEDTELE 10:37
PROVIDERS: ADMIT Hospitalist; ATTEND Internal Medicine

== ENCOUNTER 2021-03-10 06:43 | Observation (INO) ==
[2021-03-10 08:11] LABS: ABS Basophils 0.1 10^3/ul (0-0.2); ABS Eosinophils 0.1 10^3/ul (0-0.6); ABS Lymphocytes 1.6 10^3/ul (1.0-4.8); ABS Monocytes 0.7 10^3/ul (0-0.8); ABS Neutrophils 3.5 10^3/ul (1.5-7.7); Hematocrit 31 % (35-47); Hemoglobin 10.5 g/dL (12.0-16.0); Lymphocyte % 26.6 %; Mean Corpuscular HGB Conc 34 g/dL (31-36); Mean Corpuscular Hemoglobin 31 pg (27-31); Mean Corpuscular Volume 90 fL (80-97); Mean Platelet Volume 8.3 fL (7.4-10.4); Nucleated Red Blood Cells % 0.1; Platelet Count 248 10^3/uL (150-450); Red Cell Distribution Width 14 % (10-15)
[2021-03-10 08:20] LABS: Anion Gap 8 mmol/L (2-11); Blood Urea Nitrogen 36 mg/dL (6-24); CO2 Carbon Dioxide 24 mmol/L (22-32); Calcium 9.7 mg/dL (8.6-10.3); Chloride 101 mmol/L (101-111); EGFR African American 44.1 (>60); EGFR Non-African American 36.5 (>60); Glucose 202 mg/dL (70-100); Magnesium 1.2 mg/dL (1.9-2.7); Potassium 4.3 mmol/L (3.5-5.0); Sodium 133 mmol/L (135-145)
[2021-03-10 08:32] LABS: Activated Partial Thrombo Time 35.7 seconds (26.0-38.0); INR 1.19 (0.86-1.15)
[2021-03-10] MEDS ORDERED: Magnesium Sulfate 4 GM IV IVPB ONE (09:00)
[2021-03-10] MEDS ORDERED: Cholecalciferol (VIT D3) 50,000 UNIT CAP (NF) PO ONE (09:14)
[2021-03-10] MEDS: Aspirin EC 81 mg TAB.EC (enteric coated) PO SCH ×2 (09:24→09:33)
[2021-03-10] MEDS: CMC:OMEGA-3 FATTY ACID 1000 mg(NF) PO SCH ×2 (09:25→09:33)
[2021-03-10] MEDS: Metformin ER 500 mg TAB (NF) PO SCH ×2 (09:25→09:33)
[2021-03-10] MEDS ORDERED: Amiodarone 400 mg TAB PO ONE (10:00)
[2021-03-10 10:05] LABS: % Iron Saturation 23 % (15-55); Iron 71 ug/dL (50-212); Total Iron Binding Capacity 312 mcg/dL (250-450); Transferrin 223 mg/dL (203-362); Unsaturated Iron Binding < 297 ug/dL
[2021-03-10 10:18] LABS: TSH Ultra Thyroid Stim Horm 10.81 mcIU/mL (0.34-5.60)
[2021-03-10 10:24] LABS: Ferritin 75.9 ng/mL (11-307)
[2021-03-10] MEDS ORDERED: Iron Sucrose 200 MG in NS 0.9% 100 ml BAG 100 ML IVPB ONE (10:44)
[2021-03-10 13:34] LABS: Calcium 10.2 mg/dL (8.6-10.3); EGFR African American 43.1 (>60); EGFR Non-African American 35.6 (>60); Magnesium 2.9 mg/dL (1.9-2.7); Potassium 4.6 mmol/L (3.5-5.0)
[2021-03-10 15:30] VITALS: BP 151/79
[2021-03-10] MEDS ORDERED: CMC:Pravastatin 20 mg TAB (NF) PO SCH (21:00)
== END 2021-03-10 16:40 | disposition home or self-care (01) ==
LOC: MEDTELE 06:43 → CHICATH 06:43
PROVIDERS: ADMIT Internal Medicine Cardiovascular Disease; ATTEND Internal Medicine Cardiovascular Disease